=== PATIENT | male | born 1955 | race Caucasian/White ===

== ENCOUNTER 2020-12-26 10:46 | Outpatient (NON) | payer MEDICARE, SELFPAY ==
[2020-12-26 11:05] LABS: Add Urine Microscopic? YES; Appearance Urine Clear (Clear); Bilirubin Urine Negative (Negative); Blood Urine Negative (Negative); Color Urine Yellow (Yellow); Glucose Urine UA Negative (Negative); Ketones Urine Negative (Negative); Leukocyte Esterase Ur Negative LEU/UL (NEGATIVE); Nitrate Urine Negative (Negative); Protein Urine Negative (Negative); RBC Urine 0-2 /hpf (0-2); Specific Grav Ur 1.008 (1.001-1.035)
== END 2020-12-26 10:47 | disposition home or self-care (01) ==
PROVIDERS: PCP Physician Assistant; Visit Provider Physician Assistant
DX: R30.0 Dysuria (principal)
CPT/HCPCS: 81001; 87086

== ENCOUNTER 2021-01-01 13:03 | Outpatient (CLI) | payer MEDICARE, SELFPAY ==
[2021-01-01 13:42] LABS: Basophils Absolute Auto 0.1 K/mm3 (0.0-0.1); Basophils Percent Auto 1.3 % (0.2-1.2); Eosinophils Absolute Auto 0.3 K/mm3 (0-0.3); Eosinophils Percent Auto 3.5 % (0-4.4); Hematocrit 47.8 % (42.0-52.0); Hemoglobin 15.9 g/dL (14.0-18.0); Immature Granulocyte Absolute 0.02 K/mm3 (0.00-0.031); Immature Granulocyte Percent A 0.3 % (0-0.5); Lymphocytes Absolute Auto 1.51 K/mm3 (0.9-3.2); Lymphocytes Percent Auto 21.2 % (18.3-44.2); Mean Corpuscular HGB Conc 33.3 g/dl (32-36); Mean Corpuscular Hemoglobin 29.2 pg (26-34); Mean Corpuscular Volume 87.7 fl (80-100); Mean Platelet Volume 9.9 fl (7.4-10.4); Monocytes Absolute Auto 0.9 K/mm3 (0.1-0.6); Monocytes Percent Auto 12.1 % (2.6-8.5); Neutrophils Absolute Auto 4.4 K/mm3 (1.3-6.7); Neutrophils Percent Auto 61.6 % (45.5-73.1); Platelet Count Result 236 k/mm3 (150-375); Red Blood Count 5.45 M/mm3 (4.6-6.20); Red Cell Distribution Width 13.3 % (11.5-14.5); White Blood Count 7.1 K/mm3 (4.5-10.0)
[2021-01-01 13:43] LABS: Add Urine Microscopic? NO; Appearance Urine Clear (Clear); Bilirubin Urine Negative (Negative); Blood Urine Negative (Negative); Color Urine Yellow (Yellow); Glucose Urine UA Negative (Negative); Ketones Urine Negative (Negative); Leukocyte Esterase Ur Negative LEU/UL (NEGATIVE); Nitrate Urine Negative (Negative); Protein Urine Negative (Negative); Specific Grav Ur 1.009 (1.001-1.035); Urobilinogen Urine Negative mg/dL (<2.0)
[2021-01-01 13:56] LABS: Albumin Level 4.3 g/dL (3.5-5.1); Carbon Dioxide 24 mmol/L (22-30); Estimated Glomerular Filt Rate > 60
[2021-01-01 15:37] LABS: Alanine Aminotransferase 15 U/L (4-50); Alkaline Phosphatase 76 U/L (38-126); Anion Gap 8 mmol/L (8-16); Aspartate Amino Transferase 26 U/L (17-59); Bilirubin,Total 0.6 mg/dL (0.2-1.3); Blood Urea Nitrogen 11 mg/dL (9-20); Calcium 9.3 mg/dL (8.4-10.2); Chloride 110 mmol/L (98-107); Glucose 96 mg/dL (65-110); Potassium 3.9 mmol/L (3.4-5.0); Sodium 142 mmol/L (137-145)
== END 2021-01-01 13:04 | disposition home or self-care (01) ==
PROVIDERS: PCP Physician Assistant; Visit Provider Physician Assistant
DX: R30.0 Dysuria (principal); R82.2 Biliuria
CPT/HCPCS: 36415; 80053; 81003; 85025; 87086

== ENCOUNTER 2021-02-24 13:57 | Emergency (ER) | payer MEDICARE, SELFPAY ==
--- NOTE | ~2021-02-24 | XR_ITS ---
XR lumbar spine 2-3V DATE: 02/24/2021 14:32 INDICATION: Fall. Low back pain. TECHNIQUE: AP, lateral, coned lateral lumbosacral views COMPARISON: 08/01/2014 lumbar spine FINDINGS: There is osteopenia. There is mild levoscoliosis of the lumbar spine. Lumbar vertebrae are normally aligned. There is interval mild anterior wedge compression fracture def ormity of L3 since 08/01/2014. This is thought to most likely be chronic but acute fracture is not def initively excluded. No fracture of the lumbar spine is noted otherwise. There is degenerative spurring of the lower thoracic spine. There is moderately severe degenerative disc disease at L1 to moderate degenerative disc disease at L 4-5 and L5-S1. The sacroiliac joints are intact. There is a prominent of fecal material in the rectum and colon. IMPRESSION: Mild L3 compression fracture, not present in July 2014. This may be chronic, although acute fracture is not definitively excluded. Consider CT or MR correlation for more accurate dating. Osteopenia Degenerative disc disease, most pronounced at L1 to Mild levoscoliosis Reviewed, dictated and finalized at location [facility]. IMPRESSION: Mild L3 compression fracture, not present in July 2014. This ma y be chronic, although acute fracture is not definitively excluded. Consider CT or MR correlation for more accurate dating. Osteopenia Degenerative disc disease, most pronounced at L1 to Mild levoscoliosis
--- NOTE | ~2021-02-24 | CT_ITS ---
EXAMINATION: CT cervical spine wo con DATE: 02/24/2021 14:42 INDICATION: Fall. Neck pain. TECHNIQUE: Computed tomography (CT) of the cervical spine was performed without intravenous contrast. Automated exposure control and iterative reconstruction technique were employed. Exam dose: 326.62 mGy-cm total exam DLP. COMPARISON: None FINDINGS: C1 and C2 are normally aligned and the odontoid process is intact. There is fusion of the posterior elements at C2-3. There is degenerative change throughout the remain ing apophyseal joints. Uncovertebral joint spurring is noted, more prominent in the lower cervical re gion. There is moderate degenerative disc disease at C4-5 and to a greater extent C5-6 and C6-7. No fracture or dislocation or locked facet or prevertebral soft tissue swelling is detected.. IMPRESSION: No cervical spine fracture, dislocation or locked facet Cervical spondylosis Reviewed, dictated and finalized at [facility]. Reviewed, dictated and finalized at location [facility].
--- NOTE | ~2021-02-24 | CT_ITS ---
EXAMINATION: CT lumbar spine wo con DATE: 02/24/2021 15:54 INDICATION: L3 fracture of uncertain age. Fall. Back pain. TECHNIQUE: Computed tomography (CT) of the lumbar spine was performed without intravenous contrast. A utomated exposure control and iterative reconstruction technique were employed. Exam dose: 689.96 mG y-cm total exam DLP. COMPARISON: 02/24/2021 lumbar spine: None FINDINGS: There is mild anterior wedge compression fracture deformity of L3 which may be recent. No other fracture of the lumbar spine is detected. There is severe degenerative disc disease at T12-L1 and moderately prominent degenerative disc diseas e at L1-2. There is moderate degenerative disease at L4-5 and moderately severe degenerative disease at L5-S1. No spondylolysis or spondylolisthesis. Posterior bulging discs at L4-5 and L5-S1. The sacroiliac joints are intact. IMPRESSION: Mild L3 compression fracture deformity, possibly recent Multilevel degenerative disc disease Reviewed, dictated and finalized at [facility]. Reviewed, dictated and finalized at location [facility].
--- NOTE | ~2021-02-24 | CT_ITS ---
EXAMINATION: CT brain wo con DATE: 02/24/2021 14:42 INDICATION: Fall. Head injury. Neck pain. TECHNIQUE: Computed tomography (CT) of the head was performed without intravenous contrast. The mA wa s adjusted according to patient size. Iterative reconstruction technique was employed. Exam dose: 60 5.33 mGy-cm total exam DLP. COMPARISON: 08/26/2018 MRI brain/brainstem FINDINGS: No fracture or bone destruction of the cranial vault. There is a mucous retention cyst or p olyp in the posterior right maxillary sinus. There is partial opacification of left ethmoid air cells . The included paranasal sinuses and mastoid air cells are otherwise unremarkable. There is central and cortical cerebral atrophy. Bilateral carotid siphon internal carotid artery and vertebral basilar artery calcification is noted. There is nonspecific diminished attenuation of the cerebral white matter, likely due to chronic smal l vessel ischemic changes. No intracranial mass lesion or hemorrhage or cerebrovascular accident is detected. No midline shift o r mass effect effect. IMPRESSION: Cerebral atherosclerosis and chronic small vessel ischemic changes of cerebral white mat ter No acute intracranial finding Reviewed, dictated and finalized at [facility]. Reviewed, dictated and finalized at location [facility]. IMPRESSION: Cerebral atherosclerosis and chronic small vessel ischemic changes of cerebral white matter No acute intracranial finding
[2021-02-24 14:05] VITALS: BP 148/90; PULSE 92; RESP 18; TEMP 36.4; O2SAT 99
--- NOTE | 2021-02-24 14:25 | ED.FALL ---
HPI - Fall General Chief Complaint: Fall Stated Complaint: FALL/LOW BACK PAIN Time Seen by Provider: 02/24/21 14:03 Source: patient, family, RN notes reviewed and old records reviewed Mode of arrival: EMS Limitations: dementia History of Present Illness HPI Narrative: This is a 66 year old male with history of chronic low back pain and Alzheimer's Dementia who presents for evaluation of fall. His states patient fell out of bed onto his bottom. She states patient did not have loss of consciousness. Patient complained to her that he had low back pain and headache but he denies having any pain currently. She reports patient fell 2 weeks ago when he tripped over carpet. She reports he is at his baseline mental status. She is not concerned with any thing. She just wants to make sure nothing is broken. Related Data Home Medications Medication Instructions Recorded Confirmed cetirizine 10 mg capsule 10 mg PO DAILY 08/10/19 01/10/21 famotidine 10 mg tablet 10 mg PO DAILY 08/10/19 01/10/21 latanoprost (PF) 0.005 % eye drops 1 drop EACH EYE DAILY 08/10/19 01/10/21 timolol 0.25 % eye drops 1 drop EACH EYE Q12H 08/10/19 01/10/21 Allergies Allergy/AdvReac Type Severity Reaction Status Date / Time No Known Allergies Allergy Verified 01/08/21 13:56 Review of Systems Review of Systems: All systems reviewed & are unremarkable except as noted in HPI and below PMFSH Past Medical History Medical History (Updated 02/24/21 @ 16:47 by Cinthia Hogue MD) Alzheimer's dementia BPH (benign prostatic hyperplasia) Bulging lumbar disc Family History Family History Mother Patient's mother is in good health Father Patient's father is in good health Sibling Patient's sister is in good health Patient's brother is in good health Other Family history of pancreatic cancer Social History Social History Smoking packs per day: 1 Smoking cigarettes per day: 20.0 Years smoked: 5 Smoking pack-years: 5.00 Smoking status: Former smoker Second hand tobacco smoke exposure: No Smoking end date: 06/09/89 Alcohol intake: never Substance use: never Exam Const: General: no acute distress and alert Other: oriented to person HENMT: Head: normocephalic and atraumatic Mouth: Yes Normal oral and palatal mucosa present, Yes lip normal, Yes oropharynx normal and Yes moist mucous membranes Eyes: Pupils: Equal, round and reactive pupils present EOM: EOMs intact bilaterally Chest: Chest palpation & inspection: normal inspection of the chest and no tenderness Resp: Effort & Inspection: normal respiratory effort and no retractions Auscultation: clear to auscultation bilaterally Cardio: Rate: regular rate Rhythm: regular rhythm Heart sounds: no murmurs GI: GI Palp: Yes Soft to palpation, No Tenderness to palpation present (GI) and No Guarding due to palpation present (GI) Auscultation: normal bowel sounds Skin: General skin exam: normal color Neuro: General: moves all extremities and CN's II-XI intact bilaterally Psych: Mental Status: mental status grossly normal Affect: normal affect Course Reevaluation(s) Reevaluation #1: I reviewed CT showing compression fracture L1 with patient and . She denies any other concerns. Date: 02/24/21 Time: 16:45 Vital Signs Vital signs: Vital Signs Temperature 97.5 F L 02/24/21 14:05 Pulse Rate 92 02/24/21 14:05 Respiratory Rate 18 02/24/21 14:05 Blood Pressure 148/90 H 02/24/21 14:05 Pulse Oximetry 99 02/24/21 14:05 Temperature 98.2 F 02/24/21 17:47 Pulse Rate 94 02/24/21 17:47 Respiratory Rate 18 02/24/21 17:47 Blood Pressure 153/93 H 02/24/21 17:47 Pulse Oximetry 99 02/24/21 17:47 MDM - Fall Imaging Data Radiologist's impression: ITS Impressions Head CT 02/24/21 15:01 IMPRESSION: Cerebral athe
[2021-02-24 16:17] VITALS: BP 130/79; PULSE 88; RESP 18; TEMP 36.6; O2SAT 100
[2021-02-24 17:47] VITALS: BP 153/93; PULSE 94; RESP 18; TEMP 36.8; O2SAT 99
== END 2021-02-24 17:47 | disposition home or self-care (01) ==
PROVIDERS: Emergency Provider General Practice; PCP Physician Assistant
DX: S09.90XA Unspecified injury of head, initial encounter (principal); S32.010A Wedge compression fracture of first lumbar vertebra, initial encounter for closed fracture; G30.9 Alzheimer's disease, unspecified; F02.80 Dementia in other diseases classified elsewhere, unspecified severity, without behavioral disturbance, psychotic disturbance, mood disturbance, and anxiety; N40.0 Benign prostatic hyperplasia without lower urinary tract symptoms; M51.26 Other intervertebral disc displacement, lumbar region; M51.27 Other intervertebral disc displacement, lumbosacral region; Z87.891 Personal history of nicotine dependence; M51.35 Other intervertebral disc degeneration, thoracolumbar region; M51.36 Other intervertebral disc degeneration, lumbar region; M51.37 Other intervertebral disc degeneration, lumbosacral region; M47.812 Spondylosis without myelopathy or radiculopathy, cervical region; M85.88 Other specified disorders of bone density and structure, other site; I67.2 Cerebral atherosclerosis; W06.XXXA Fall from bed, initial encounter
CPT/HCPCS: 70450; 72100; 72125; 72131; 99284

== ENCOUNTER 2021-08-03 00:06 | Emergency (ER) | payer MEDICARE, SELFPAY ==
[2021-08-03 00:11] VITALS: BP 137/74; PULSE 82; RESP 12; TEMP 36.5; O2SAT 100
[2021-08-03 00:35] LABS: Basophils Absolute Auto 0.1 K/mm3 (0.0-0.1); Basophils Percent Auto 0.6 % (0.2-1.2); Eosinophils Absolute Auto 0.2 K/mm3 (0-0.3); Eosinophils Percent Auto 1.9 % (0-4.4); Hemoglobin 11.1 g/dL (14.0-18.0); Immature Granulocyte Absolute 0.08 K/mm3 (0.00-0.031); Immature Granulocyte Percent A 0.7 % (0-0.5); Lymphocytes Absolute Auto 2.09 K/mm3 (0.9-3.2); Lymphocytes Percent Auto 19.4 % (18.3-44.2); Mean Corpuscular HGB Conc 33.6 g/dl (32-36); Mean Corpuscular Hemoglobin 28.8 pg (26-34); Mean Corpuscular Volume 85.7 fl (80-100); Mean Platelet Volume 9.3 fl (7.4-10.4); Monocytes Absolute Auto 1.4 K/mm3 (0.1-0.6); Monocytes Percent Auto 12.7 % (2.6-8.5); Neutrophils Percent Auto 64.7 % (45.5-73.1); Platelet Count Result 515 k/mm3 (150-375); Red Blood Count 3.85 M/mm3 (4.6-6.20); Red Cell Distribution Width 13.1 % (11.5-14.5); White Blood Count 10.8 K/mm3 (4.5-10.0)
[2021-08-03 00:52] LABS: Add Urine Microscopic? YES; Appearance Urine Clear (Clear); Bacteria Urine Trace /hpf; Bilirubin Urine Negative (Negative); Blood Urine Negative (Negative); Color Urine Yellow (Yellow); Glucose Urine UA Negative (Negative); Ketones Urine Negative (Negative); Leukocyte Esterase Ur Negative LEU/UL (Negative); Mucus Urine Rare /lpf; Nitrate Urine Negative (Negative); Protein Urine 1+ mg/dL (Negative); RBC Urine 0-2 /hpf (0-2); Specific Grav Ur 1.021 (1.001-1.035); WBC Urine 0-3 /hpf
[2021-08-03 01:11] LABS: Alanine Aminotransferase 25 U/L (4-50); Albumin Level 3.3 g/dL (3.5-5.1); Alkaline Phosphatase 91 U/L (38-126); Anion Gap 10 mmol/L (8-16); Aspartate Amino Transferase 35 U/L (17-59); Bilirubin,Total 0.5 mg/dL (0.2-1.3); Blood Urea Nitrogen 17 mg/dL (9-20); Calcium 8.8 mg/dL (8.4-10.2); Carbon Dioxide 28 mmol/L (22-30); Chloride 102 mmol/L (98-107); Estimated CRCL calculation 75 ml/min; Estimated Glomerular Filt Rate > 60; Glucose 100 mg/dL (65-110); Potassium 3.4 mmol/L (3.4-5.0); Sodium 140 mmol/L (137-145)
--- NOTE | 2021-08-03 01:31 | ED.MALEGU ---
HPI - Male Genitourinary General Chief complaint: Urogenital-Male Stated complaint: urinary retention Time Seen by Provider: 08/03/21 00:08 Source: EMS and other ([facility]) Mode of arrival: EMS Limitations: dementia History of Present Illness HPI Narrative: Pt is a 66 y/o male, PMHx of dementia and BPH, presents to ED via EMS from local group home facility with urinary retention, with normal UO throughout the day today until this afternoon. He has no fevers, flank pain or vomiting. No other symptoms reported. No new medications reported. Related Data Home Medications Medication Instructions Recorded Confirmed cetirizine 10 mg capsule 10 mg PO DAILY 08/10/19 01/10/21 famotidine 10 mg tablet 10 mg PO DAILY 08/10/19 01/10/21 latanoprost (PF) 0.005 % eye drops 1 drop EACH EYE DAILY 08/10/19 01/10/21 timolol 0.25 % eye drops 1 drop EACH EYE Q12H 08/10/19 01/10/21 Allergies Allergy/AdvReac Type Severity Reaction Status Date / Time No Known Allergies Allergy Verified 01/08/21 13:56 Review of Systems Review of Systems: refer to HPI Genitourinary: Genitourinary: Reports as per HPI [facility] Past Medical History Medical History (Updated 08/03/21 @ 01:50 by MIRIAM Bartholomew) Alzheimer's dementia BPH (benign prostatic hyperplasia) Bulging lumbar disc Family History Family History Mother Patient's mother is in good health Father Patient's father is in good health Sibling Patient's sister is in good health Patient's brother is in good health Other Family history of pancreatic cancer Social History Social History Smoking packs per day: 1 Smoking cigarettes per day: 20.0 Years smoked: 5 Smoking pack-years: 5.00 Smoking status: Former smoker Second hand tobacco smoke exposure: No Smoking end date: 06/09/89 Alcohol intake: never Substance use: never Exam Const: General: cooperative, alert and other (appears older than stated age, conversant when spoken to, poor historian) Nutritional Appearance: average body habitus Orientation/consciousness: oriented to person, oriented to place and confusion Other: dementia HENMT: Head: normal to inspection Ears: hearing grossly normal bilaterally General nose exam: Normal external nose present Face and sinus: normal facial exam Mouth: Yes Normal oral and palatal mucosa present Eyes: General: appearance normal, both eyes and all related structures Visual Jett: normal visual jett by confrontation Conjunctivae: conjunctivae normal Sclera: sclerae normal EOM: EOMs intact bilaterally Neck: Neck: normal visual inspection, full ROM, no lymphadenopathy and no meningeal signs Chest: Chest palpation & inspection: normal inspection of the chest Resp: Effort & Inspection: normal respiratory effort and able to speak in complete sentences Auscultation: clear to auscultation bilaterally Cardio: Jugular venous distension: no JVD Palpation: normal PMI Rate: regular rate Rhythm: regular rhythm Heart sounds: S1 normal heart sound present, S2 normal heart sound present and Murmur heart sound present systolic II/ and at the left sternal border Peripheral pulses: Peripheral pulses 2+ throughout GI: Inspection: normal to inspection GI Palp: Yes Soft to palpation Percussion: Yes normal to percussion Auscultation: normal bowel sounds Rectal Exam: deferred : General: Yes no CVA tenderness Male General Exam: Yes normal external exam Penis: Yes normal penis Urinary Catheter: Urinary Catheter: patent and draining and urine dark Back/Spine/Pelvis: Back: no CVA tenderness Skin: General skin exam: normal color Rashes: no rashes Course Course Emergency Course: labs at baseline for patient, bladder scan confirmed urinary retention. Pt's notes patient had a similar incident two weeks ago following hip replacement surge
[2021-08-03 02:02] VITALS: BP 148/69; PULSE 83; RESP 18; TEMP 36.6; O2SAT 98
== END 2021-08-03 04:02 ==
PROVIDERS: Emergency Provider Nurse Practitioner Family; PCP Family Medicine
DX: N40.1 Benign prostatic hyperplasia with lower urinary tract symptoms (principal); R33.8 Other retention of urine; G30.9 Alzheimer's disease, unspecified; F02.80 Dementia in other diseases classified elsewhere, unspecified severity, without behavioral disturbance, psychotic disturbance, mood disturbance, and anxiety; Z87.891 Personal history of nicotine dependence
CPT/HCPCS: 36415; 51702; 80053; 81001; 85025; 99283

== ENCOUNTER 2021-08-14 17:20 | Emergency (ER) | payer MEDICARE, SELFPAY ==
[2021-08-14 17:25] VITALS: BP 119/79; PULSE 98; RESP 16; TEMP 36.9; O2SAT 96
--- NOTE | 2021-08-14 17:37 | ED.MALEGU ---
HPI - Male Genitourinary General Chief complaint: Urogenital-Male Stated complaint: nascimento placed Time Seen by Provider: 08/14/21 17:31 Source: patient Mode of arrival: ambulatory Limitations: no limitations History of Present Illness HPI Narrative: 66-year-old male with history of Alzheimer's presents from the skilled nursing today with concerns of inability to urinate. Patient was seen by urology on the and Nascimento catheter was inserted. Patient's Nascimento catheter was removed last night. Per sitting at the bedside patient has been unable to urinate. Patient's states he is eating and drinking normally. His mentation is at his baseline. No other concerns today other than urinary issue. Patient's stated that they did start him on Bactrim today due to a UTI. Related Data Home Medications Medication Instructions Recorded Confirmed cetirizine 10 mg capsule 10 mg PO DAILY 08/10/19 01/10/21 famotidine 10 mg tablet 10 mg PO DAILY 08/10/19 01/10/21 latanoprost (PF) 0.005 % eye drops 1 drop EACH EYE DAILY 08/10/19 01/10/21 timolol 0.25 % eye drops 1 drop EACH EYE Q12H 08/10/19 01/10/21 Allergies Allergy/AdvReac Type Severity Reaction Status Date / Time No Known Allergies Allergy Verified 01/08/21 13:56 Review of Systems Review of Systems: CONSTITUTIONAL: Denies fever, chills, or sweats. CARDIOVASCULAR: Denies chest pain, palpitations, or edema. RESPIRATORY: Denies cough or dyspnea. GASTROINTESTINAL: Denies abdominal pain, nausea, vomiting, or diarrhea. GENITOURINARY: Difficulty urinating. Pelvic pain. NEUROLOGIC: Denies headache, numbness, dizziness, or weakness. PSYCHIATRIC: Denies anxiety or depression. [facility] Past Medical History Medical History Alzheimer's dementia BPH (benign prostatic hyperplasia) Bulging lumbar disc Family History Family History Mother Patient's mother is in good health Father Patient's father is in good health Sibling Patient's sister is in good health Patient's brother is in good health Other Family history of pancreatic cancer Social History Social History Smoking packs per day: 1 Smoking cigarettes per day: 20.0 Years smoked: 5 Smoking pack-years: 5.00 Smoking status: Former smoker Second hand tobacco smoke exposure: No Smoking end date: 06/09/89 Alcohol intake: never Substance use: never Exam Narrative: GENERAL: Alert, awake, no acute distress. HEAD: Normocephalic, atraumatic. EYES: PERRLA and EOMI. ENT: Nares clear, no rhinorrhea or epistaxis. Mucous membranes moist. Oropharynx without tonsillar hypertrophy exudate or other lesions. Bilateral TMs pearly tamayo nonbulging NECK: Supple. No adenopathy or masses. No carotid bruits or JVD CHEST: Clear to auscultation. No respiratory distress. No wheezes rales or rhonchi HEART: Regular rate and rhythm. No murmur heard. Normal peripheral pulses. ABDOMEN: Tenderness to pelvic region. Soft, nondistended, normal active bowel sounds. EXTREMITIES: Normal range of motion. No edema. SKIN: Warm, dry, no rash. NEURO: Patient at baseline. No focal deficits. PSYCH: Normal mood and affect. Course Reevaluation(s) Reevaluation #1: Patient with over 200 ml out of urine. at bedside. No other concerns at this time. Patient to be discharged back to [facility]. Date: 08/14/21 Time: 18:30 Vital Signs Vital signs: Vital Signs Temperature 36.9 C 08/14/21 17:25 Pulse Rate 98 08/14/21 17:25 Respiratory Rate 16 08/14/21 17:25 Blood Pressure 119/79 08/14/21 17:25 Pulse Oximetry 96 08/14/21 17:25 Temperature 36.9 C 08/14/21 17:25 Pulse Rate 92 08/14/21 20:09 Respiratory Rate 16 08/14/21 20:09 Blood Pressure 115/80 08/14/21 20:09 Pulse Oximetry 98 08/14/21 20:09 MDM - Male Genitourinary Differential Diagn
[2021-08-14 18:08] LABS: Add Urine Microscopic? YES; Appearance Urine Cloudy (Clear); Bacteria Urine Trace /hpf; Bilirubin Urine Negative (Negative); Blood Urine 1+ (Negative); Color Urine Yellow (Yellow); Glucose Urine UA Negative (Negative); Ketones Urine Negative (Negative); Leukocyte Esterase Ur 1+ LEU/UL (Negative); Nitrate Urine Negative (Negative); Protein Urine 2+ mg/dL (Negative); Specific Grav Ur 1.017 (1.001-1.035); WBC Urine >75 /hpf
--- NOTE | 2021-08-14 20:08 | PC.NURSE ---
Attempted to call report to [facility] at 1999, no answer. Voice mail left. Spoke to patient's , Iman, and notified her that he was on his way back to [facility].
[2021-08-14 20:09] VITALS: BP 115/80; PULSE 92; RESP 16; O2SAT 98
--- NOTE | 2021-08-14 20:09 | PC.NURSE ---
ramirez has arrived
== END 2021-08-14 20:11 ==
PROVIDERS: Emergency Provider Nurse Practitioner Family; PCP Family Medicine
DX: N40.1 Benign prostatic hyperplasia with lower urinary tract symptoms (principal); R33.8 Other retention of urine; G30.9 Alzheimer's disease, unspecified; F02.80 Dementia in other diseases classified elsewhere, unspecified severity, without behavioral disturbance, psychotic disturbance, mood disturbance, and anxiety; Z87.891 Personal history of nicotine dependence
CPT/HCPCS: 51702; 81001; 87086; 99283

== ENCOUNTER 2022-01-14 01:47 | Emergency (ER) | payer MEDICARE, SELFPAY ==
[2022-01-14 01:48] VITALS: BP 142/69; PULSE 59; RESP 18; TEMP 36.2; O2SAT 100
--- NOTE | 2022-01-14 02:00 | ED.GENADULT ---
HPI - General Adult General Chief complaint: Urogenital-Male Stated complaint: cant replace nascimento Time Seen by Provider: 01/14/22 01:52 History of Present Illness HPI narrative: 66-year-old male presenting to the emergency department for evaluation from a local senior living due to difficulty in replacing his Nascimento catheter. Patient has had an indwelling Nascimento catheter for an unknown duration. Patient is unsure how long he has had the Nascimento catheter. [facility] attempted to replace a Nascimento catheter per the monthly schedule and they were unable to repassed the catheter. Patient was transferred to the emergency department by ambulance. Related Data Home Medications Medication Instructions Recorded Confirmed cetirizine 10 mg capsule 10 mg PO DAILY 08/10/19 01/10/21 famotidine 10 mg tablet (Pepcid AC) 10 mg PO DAILY 08/10/19 01/10/21 latanoprost (PF) 0.005 % eye drops 1 drop ophthalmic (eye) DAILY 08/10/19 01/10/21 timolol 0.25 % eye drops (Betimol) 1 drop ophthalmic (eye) Q12H 08/10/19 01/10/21 Allergies Allergy/AdvReac Type Severity Reaction Status Date / Time No Known Allergies Allergy Verified 01/14/22 01:53 Review of Systems Review of Systems: ROS unobtainable: Yes unobtainable due to medical condition PMFSH Past Medical History Medical History Alzheimer's dementia BPH (benign prostatic hyperplasia) Bulging lumbar disc Family History Family History Mother Patient's mother is in good health Father Patient's father is in good health Sibling Patient's sister is in good health Patient's brother is in good health Other Family history of pancreatic cancer Social History Social History Smoking packs per day: 1 Smoking cigarettes per day: 20.0 Years smoked: 5 Smoking pack-years: 5.00 Smoking status: Former smoker Second hand tobacco smoke exposure: No Smoking end date: 06/09/89 Alcohol intake: never Substance use: never Exam Narrative: APPEARANCE: Well appearing, no pain, no distress, well-nourished. HEAD: normocephalic, atraumatic. EYES: PERRLA/EOMI, conjunctivae clear. NOSE: Normal no drainage NECK: Supple. No adenopathy, no masses. RESPIRATORY: Airway patent, respirations nonlabored. Clear to auscultation bilaterally, no rales, rhonchi, wheezing. CARDIOVASCULAR: Regular rate and rhythm without murmurs rubs or gallops. ABDOMINAL: Soft, nontender, nondistended, normal bowel sounds MUSCULOSKELETAL: Moves all extremities. Strength/ROM intact, No edema, No calf tenderness. NEURO: Alert. Cranial nerves II through XII intact. Grossly intact SKIN: Warm, dry. Normal Color PSYCHIATRIC: Normal affect/mood. Course Course Emergency Course: Nursing staff was able to place a coud? Nascimento without issue. Patient is passing urine. Patient denies any complaints. Vital Signs Vital signs: Vital Signs Temperature 97.1 F L 01/14/22 01:48 Pulse Rate 59 L 01/14/22 01:48 Respiratory Rate 18 01/14/22 01:48 Blood Pressure 142/69 H 01/14/22 01:48 Pulse Oximetry 100 01/14/22 01:48 Oxygen Delivery Room Air 01/14/22 01:48 Temperature 97.1 F L 01/14/22 01:48 Pulse Rate 92 01/14/22 03:42 Respiratory Rate 18 01/14/22 03:42 Blood Pressure 139/73 01/14/22 03:42 Pulse Oximetry 95 01/14/22 03:42 Oxygen Delivery Room Air 01/14/22 01:48 Medical Decision Making Vital Signs Vital Signs: Vital Signs Temperature 97.1 F L 01/14/22 01:48 Pulse Rate 59 L 01/14/22 01:48 Respiratory Rate 18 01/14/22 01:48 Blood Pressure 142/69 H 01/14/22 01:48 Pulse Oximetry 100 01/14/22 01:48 Oxygen Delivery Room Air 01/14/22 01:48 Temperature 97.1 F L 01/14/22 01:48 Pulse Rate 92 01/14/22 03:42 Respiratory Rate 18 01/14/22 03:42 Blood Pressure 139/73 01/14/22 03:42 Pulse Oximetry 95
--- NOTE | 2022-01-14 02:15 | PC.NURSE ---
14F coude catheter inserted easily without resistance. Pt tolerated well.
--- NOTE | 2022-01-14 02:33 | PC.NURSE ---
Report to T[facility] at [place]. [facility] notified of need to transport. ETA [id number].
[2022-01-14 03:42] VITALS: BP 139/73; PULSE 92; RESP 18; O2SAT 95
== END 2022-01-14 03:46 ==
PROVIDERS: Emergency Provider Emergency Medicine; PCP Physician Assistant
DX: Z46.6 Encounter for fitting and adjustment of urinary device (principal); G30.9 Alzheimer's disease, unspecified; F02.80 Dementia in other diseases classified elsewhere, unspecified severity, without behavioral disturbance, psychotic disturbance, mood disturbance, and anxiety; N40.0 Benign prostatic hyperplasia without lower urinary tract symptoms; Z87.891 Personal history of nicotine dependence
CPT/HCPCS: 51702; 99283

== ENCOUNTER 2022-08-26 16:55 | Inpatient (IN) | payer MEDICARE, SELFPAY ==
[2022-08-26] VITALS (34 sets, daily range): BP systolic 83–146; BP diastolic 53–101; PULSE 110–134; RESP 14–27; TEMP 37.9–39.9; O2SAT 96–100
--- NOTE | ~2022-08-26 | CT_ITS ---
EXAMINATION: CT abdomen pelvis wo/w con DATE: 08/27/2022 14:11 INDICATION: Gross hematuria TECHNIQUE: Computed tomography (CT) of the abdomen and pelvis was performed without intravenous contr ast. CT of the abdomen and pelvis was then performed with a total of 130 mL Omnipaque 350 intravenous contrast using a double-bolus technique for simultaneous opacification of the renal parenchyma and r enal collecting system. The dose-length product (DLP) was 1180.86 mGy-cm. Automated exposure control and iterative reconstruction technique were employed. COMPARISON: 02/24/2021 FINDINGS: Minimal dependent atelectasis is present in the lung bases. The heart size is normal. There is a 2.1 cm cyst of the left hepatic lobe. The spleen, pancreas, gallbladder, and adrenal glands are normal. There is mild bilateral proximal hydroureter of unclear etiology. The bladder is decompresse d by Winters catheter. There are stones in the urinary bladder. A large volume of colonic stool is pres ent. There is fecal impaction and distention of the rectum. There appears to be mild wall thickening of the rectum with adjacent perirectal fat stranding. There is no free intraperitoneal gas. No pathol ogically enlarged abdominal or pelvic lymph nodes are identified. There is calcified atherosclerosis of the aorta and many of the other arteries. The appendix is normal. There are changes of right hip a rthroplasty. There is a chronic L3 compression fracture with interval worsening. IMPRESSION: 1. Multiple stones in the urinary bladder. 2. Mild bilateral proximal hydroureter. 3. Fecal impaction and distention of the rectum with possible stercoral colitis. Reviewed, dictated and finalized at location L. IMPRESSION: 1. Multiple stones in the urinary bladder. 2. Mild bilateral proximal hydroureter. 3. Fecal impaction and distention of the rectum with possible stercoral colitis .
--- NOTE | ~2022-08-26 | US_ITS ---
Renal-Bladder ultrasound Clinical History: Hydronephrosis Technique: Real-time sonographic imaging of the kidneys and urinary bladder was performed. Findings: The right kidney measures 11.5 cm in length and the left kidney measures 11.3 cm. There is no hydronephrosis or renal calculus identified. Renal cortical echogenicity is within normal limits. No renal mass lesion is identified. The urinary bladder is collapsed around a Winters catheter. Impression: Unremarkable ultrasound of the kidneys. Collapsed urinary bladder limits evaluation. Reviewed, dictated and finalized at location M. Impression: Unremarkable ultrasound of the kidneys. Collapsed urinary bladder limits evaluation.
--- NOTE | ~2022-08-26 | XR_ITS ---
EXAM: XR abdomen/kub 1V DATE: 08/27/2022 17:40 HISTORY: gross hematuria . COMPARISON: CT abdomen pelvis 08/27/2022. FINDINGS: Clear lung bases. Large volume of colonic stool. No organomegaly. Contrast fills the bilat eral collecting systems and urinary bladder. Known bladder calcifications are obscured by contrast. F oley catheter, in good position. Bilateral moderate hydronephrosis. Partially visualized right hip ar throplasty. IMPRESSION: Moderate bilateral hydronephrosis. Reviewed, dictated and finalized at location K.
[2022-08-26] MEDS: ACETAMINOPHEN 650 MG SUPPOSITORY RECTAL (18:18)
[2022-08-26] MEDS: SODIUM CHLORIDE 0.9% IV 1,000 ML 999 ML IV CONT ×2 (18:19→20:47)
[2022-08-26 18:53] LABS: Appearance Urine Turbid (Clear); Bilirubin Urine 1+ (Negative); Blood Urine 3+ (Negative); Color Urine Red (Yellow); Glucose Urine UA Negative (Negative); Ketones Urine Trace mg/dL (Negative); Leukocyte Esterase Ur 1+ LEU/UL (Negative); Nitrate Urine Positive (Negative); Protein Urine 3+ mg/dL (Negative); Specific Grav Ur 1.015 (1.001-1.035); pH Urine >=9.0 (5.0-9.0)
[2022-08-26 18:57] LABS: Add Urine Microscopic? YES; RBC Urine >100 /hpf (0-2)
[2022-08-26 18:59] LABS: Squamous Epithelial Cell Urine None seen /hpf (Few)
[2022-08-26 19:00] LABS: Bacteria Urine 4+ /hpf
[2022-08-26 19:03] LABS: Hematocrit 45.2 % (42.0-52.0); Hemoglobin 14.5 g/dL (14.0-18.0); Mean Corpuscular HGB Conc 32.1 g/dl (32-36); Mean Corpuscular Hemoglobin 29.1 pg (26-34); Mean Corpuscular Volume 90.8 fl (80-100); Mean Platelet Volume 11.4 fl (7.4-10.4); Platelet Count Result 237 k/mm3 (150-375); Red Blood Count 4.98 M/mm3 (4.6-6.20); Red Cell Distribution Width 14.1 % (11.5-14.5); White Blood Count 15.7 K/mm3 (4.5-10.0)
[2022-08-26 19:13] LABS: Alanine Aminotransferase 21 U/L (6-50); Albumin Level 4.3 g/dL (3.5-5.1); Alkaline Phosphatase 105 U/L (38-126); Anion Gap 8 mmol/L (8-16); Aspartate Amino Transferase 31 U/L (17-59); Bilirubin,Total 0.7 mg/dL (0.2-1.3); Blood Urea Nitrogen 30 mg/dL (9-20); Calcium 9.3 mg/dL (8.4-10.2); Carbon Dioxide 28 mmol/L (22-30); Chloride 107 mmol/L (98-107); Estimated Glomerular Filt Rate 47; Glucose 91 mg/dL (65-110); Lactic Acid Reflex 2.6 mmol/L (0.7-2.0); Potassium 3.6 mmol/L (3.4-5.0); Sodium 143 mmol/L (137-145)
[2022-08-26] MEDS: SODIUM CHLORIDE 0.9% IV 1,000 ML 999 ML (19:26)
--- NOTE | 2022-08-26 19:26 | PC.NURSE ---
Per EMILIE Palma, give 1000mL NS bolus
--- NOTE | 2022-08-26 19:47 | ED.GENADULT ---
HPI - General Adult General Chief complaint: Urogenital-Male Stated complaint: Unspecified Time Seen by Provider: 08/26/22 17:08 History of Present Illness HPI narrative: Patient is a 67-year-old male who presents ER with hematuria. detention noticed blood in the catheter today. Patient unable to communicate needs due to dementia related to Parkinson's. Patient does have distended bladder on exam. Patient is not on any blood thinners. He does have chronic indwelling Winters catheter due to urinary retention. Related Data Home Medications Medication Instructions Recorded Confirmed cetirizine 10 mg capsule 10 mg PO DAILY 08/10/19 01/10/21 famotidine 10 mg tablet (Pepcid AC) 10 mg PO DAILY 08/10/19 01/10/21 latanoprost (PF) 0.005 % eye drops 1 drop ophthalmic (eye) DAILY 08/10/19 01/10/21 timolol 0.25 % eye drops (Betimol) 1 drop ophthalmic (eye) Q12H 08/10/19 01/10/21 Allergies Allergy/AdvReac Type Severity Reaction Status Date / Time No Known Allergies Allergy Verified 01/14/22 01:53 Review of Systems Review of Systems: ROS unobtainable: Yes unobtainable due to mental status PMFSH Past Medical History Medical History Alzheimer's dementia BPH (benign prostatic hyperplasia) Bulging lumbar disc Family History Family History Mother Patient's mother is in good health Father Patient's father is in good health Sibling Patient's sister is in good health Patient's brother is in good health Other Family history of pancreatic cancer Social History Social History Smoking packs per day: 1 Smoking cigarettes per day: 20.0 Years smoked: 5 Smoking pack-years: 5.00 Smoking status: Former smoker Second hand tobacco smoke exposure: No Smoking end date: 06/09/89 Alcohol intake: never Substance use: never Exam Narrative: GENERAL: Chronically ill-appearing, well-nourished, and in no acute distress. HEAD: Normocephalic, atraumatic. ENT: Dry mucous membranes. CHEST: Clear to auscultation. No respiratory distress. HEART: Tachycardic and regular. Normal peripheral pulses. ABDOMEN: Soft, bladder palpated at the umbilicus which elicits pain, normal active bowel sounds. : Acquired hypospadias from erosion of Winters catheter through penis. Blood clot surrounding this. Winters catheter filled with blood. EXTREMITIES: Normal range of motion. No edema. SKIN: Warm, dry, no rash. NEURO: Awake and alert but not oriented. Course Course Emergency Course: Winters catheter is essentially clear after placement of three-way catheter and CBI. Patient has received rectal Tylenol for his fever. He will receive ceftriaxone to treat urinary infection. Urology has been consulted. I discussed the severity of the illness with patient's . He is a DNR. We discussed potential central line placement and she is apprehensive as she thinks she will likely pull it out. Comfort focused measures at this time while trying to fluid resuscitate and treat infection. Vital Signs Vital signs: Vital Signs Temperature 100.2 F H 08/26/22 16:55 Pulse Rate 124 H 08/26/22 16:55 Respiratory Rate 20 08/26/22 16:55 Blood Pressure 146/83 H 08/26/22 16:55 Pulse Oximetry 100 08/26/22 16:55 Temperature 102.9 F H 08/26/22 20:03 Pulse Rate 117 H 08/26/22 21:12 Respiratory Rate 16 08/26/22 21:12 Blood Pressure 98/59 L 08/26/22 21:12 Pulse Oximetry 100 08/26/22 21:12 Medical Decision Making Vital Signs Vital Signs: Vital Signs Temperature 100.2 F H 08/26/22 16:55 Pulse Rate 124 H 08/26/22 16:55 Respiratory Rate 20 08/26/22 16:55 Blood Pressure 146/83 H 08/26/22 16:55 Pulse Oximetry 100 08/26/22 16:55 Temperature 102.9 F H 08/26/22 20:03 Pulse Rate 117 H 08/26/22 21:12 Respiratory Rate 16 08/26/22 21:12 Bl
[2022-08-26 20:04] LABS: Band Neutrophils Percent 11 % (0-6); Lymphocytes Absolute Manual 0.94 K/mm3 (1.1-4.5); Neutrophils Absolute Manual 14.75 K/mm3 (1.3-6.7); Neutrophils Percent Manual 83 % (46-73); Total Cells Counted 100
[2022-08-26 20:05] LABS: Platelet Estimate Adequate (Adequate); Schistocytes None Seen (NORMAL)
[2022-08-26 20:28] LABS: Influenza A QL RT-PCR Negative (Negative); Influenza B QL RT-PCR Negative (Negative); SARS-CoV-2 RNA PCR Negative
--- NOTE | 2022-08-26 20:37 | ECG_ITS ---
Measurements Intervals [place] Rate: 123 P: 69 [place]: 155 QRS: 100 QRSD: 149 T: 41 QT: 363 QTc: 520 Interpretive Statements SINUS TACHYCARDIA RIGHT BUNDLE BRANCH BLOCK BASELINE ARTIFACT- I, II, III, AVR, AVL, AVF, V1-V2 ABNORMAL ECG NO PREVIOUS ECG AVAILABLE FOR COMPARISON Electronically Signed On 08-27-2022 6:45:34 CDT by Vignesh Ruby D.O.
[2022-08-26] MEDS: LACTATED RINGERS 1,000 ML 125 ML IV CONT (21:28)
[2022-08-26 22:00] LABS: Reflex Lactic Acid Yes or No Add Lactic
[2022-08-26 22:43] LABS: Lactic Acid 2.1 mmol/L (0.7-2.0)
--- NOTE | 2022-08-26 22:50 | PM.IMHP ---
H&P: HPI History of Present Illness Date/Time: 08/26/22 22:50 Chief Complaint: Blood in Winters catheter Narrative: 67-year-old male with past medical history of dementia, chronic urinary retention with chronic indwelling Winters catheter, glaucoma and GERD who presented to the ER via EMS from [facility] due to hematuria noted in Winters catheter on arrival to the ER the patient was febrile with a T-max of 103.8?. The ER physician let me know that the patient's bladder was noted bleed distended on exam and his Winters catheter was not draining. His catheter was exchanged in the the ER and a 3 way catheter was placed for bladder irrigation. Urology was consulted. The patient was placed on antibiotic therapy with Rocephin. A review of our records indicate that the patient does not have a history of drug-resistant UTIs in the past. The patient was noted to be tachycardic. He also developed some borderline hypotension after exchange of the Winters catheter. He had lactic acidosis with a lactic acid 2.6 with repeat of 2.1 after receiving 1 L normal saline bolus. The patient was given a 2 L of normal saline. The patient's case was discussed with the patient's who stated that she would not want the patient to be resuscitated if his heart were to stop. She also would not want a central line since the patient would have to be restrained in order to not pull at the central line. She would like to proceed with conservative treatment with antibiotics and fluids and see if the patient's condition improves. Source of information is ER records, group home records hand physician report. Family was no longer at bedside when I evaluated the patient. Patient was evaluated in the ER. The patient's home med rec is still not available for my review. Review of Systems Review of Systems: ROS unobtainable: Yes unobtainable due to mental status PMFSH Past Medical History Medical History (Updated 08/26/22 @ 23:05 by Minnie Padilla DO) Alzheimer's dementia BPH (benign prostatic hyperplasia) Bulging lumbar disc Chronic indwelling Winters catheter GERD (gastroesophageal reflux disease) Glaucoma Surgical History Surgical History (Updated 08/27/22 @ 03:28 by Minnie Padilla DO) History of right hip replacement Due to fracture Status post cataract extraction of both eyes with insertion of intraocular lens Family History Family History Mother Patient's mother is in good health Father Patient's father is in good health Sibling Patient's sister is in good health Patient's brother is in good health Other Family history of pancreatic cancer Social History Social History (Updated 08/26/22 @ 22:57 by Minnie Padilla DO) Social History: The patient is . Code status: DNR/DNI. No central line. Surrogate decision maker: Smoking packs per day: 1 Smoking cigarettes per day: 20.0 Years smoked: 5 Smoking pack-years: 5.00 Smoking status: Former smoker Second hand tobacco smoke exposure: No Smoking end date: 06/09/89 Alcohol intake: never Substance use: never Meds Home Medications and Allergies Home Medications Medication Instructions Recorded Confirmed Type cetirizine 10 mg capsule 10 mg PO DAILY 08/10/19 01/10/21 History famotidine 10 mg tablet (Pepcid AC) 10 mg PO DAILY 08/10/19 01/10/21 History latanoprost (PF) 0.005 % eye drops 1 drop ophthalmic (eye) DAILY 08/10/19 01/10/21 History timolol 0.25 % eye drops (Betimol) 1 drop ophthalmic (eye) Q12H 08/10/19 01/10/21 History benzonatate 200 mg capsule 200 mg PO TID PRN cough #30 caps 08/28/20 01/10/21 Rx zonisamide 100 mg capsule 200 mg PO DAILY #180 caps 01/01/21 01/10/21 Rx amitriptyline 75 mg tablet 75 mg PO QHS #90 tabs 01/05/21 01/10/21 Rx donepezil 10 mg tablet 10 mg PO DAILY #90 tabs 01/05/21 01/10/21 Rx gabapentin 300 mg capsule 300 mg PO TID #270 caps 01/05/21
--- NOTE | 2022-08-26 23:42 | PC.NURSE ---
Report given to Krystle GRIMES
[2022-08-27] VITALS (47 sets, daily range): BP systolic 82–113; BP diastolic 51–63; PULSE 88–115; RESP 13–25; TEMP 36.8–39.2; O2SAT 97–100; BMI 23.8
--- NOTE | 2022-08-27 03:24 | PC.NURSE ---
spoke with dr. ramirez regarding cbi being clear, she suggests slowing down and checking with urology for orders
--- NOTE | 2022-08-27 06:28 | ADMGEN ---
This patient, Dandy Silverman, was admitted to IMU Room 232-01. Patient/family oriented to hospital policies and general routines including ID bracelet, bed and alarms, visiting hours, pain management, procedures, bathroom and other care routines, personal items, smoking policy, room service/diet, and visiting hours. Information on how to activate the Rapid Response Team has been discussed. Patient/Family are encouraged to report perceived risks to care and to ask questions if they do not understand what they are told or what they should do.
[2022-08-27 06:41] LABS: Hematocrit 35.1 % (42.0-52.0); Hemoglobin 11.2 g/dL (14.0-18.0); Mean Corpuscular HGB Conc 31.9 g/dl (32-36); Mean Corpuscular Hemoglobin 29.6 pg (26-34); Mean Corpuscular Volume 92.9 fl (80-100); Mean Platelet Volume 10.8 fl (7.4-10.4); Platelet Count Result 175 k/mm3 (150-375); Red Blood Count 3.78 M/mm3 (4.6-6.20); Red Cell Distribution Width 14.1 % (11.5-14.5); White Blood Count 34.3 K/mm3 (4.5-10.0)
[2022-08-27 06:55] LABS: Albumin Level 3.2 g/dL (3.5-5.1); Alkaline Phosphatase 63 U/L (38-126); Anion Gap 6 mmol/L (8-16); Aspartate Amino Transferase 45 U/L (17-59); Bilirubin,Total 0.6 mg/dL (0.2-1.3); Blood Urea Nitrogen 25 mg/dL (9-20); Calcium 8.2 mg/dL (8.4-10.2); Carbon Dioxide 23 mmol/L (22-30); Chloride 114 mmol/L (98-107); Estimated CRCL calculation 42 ml/min; Estimated Glomerular Filt Rate 47; Glucose 101 mg/dL (65-110); Potassium 3.3 mmol/L (3.4-5.0); Sodium 143 mmol/L (137-145)
[2022-08-27 06:58] LABS: Lactic Acid Reflex 3.2 mmol/L (0.7-2.0)
[2022-08-27 07:01] LABS: Alanine Aminotransferase 37 U/L (6-50)
[2022-08-27 07:19] LABS: Band Neutrophils Percent 13 % (0-6); Lymphocytes Absolute Manual 0.34 K/mm3 (1.1-4.5); Lymphocytes Percent Manual 1 % (18-44); Monocytes Absolute Manual 2.05 K/mm3 (0.1-0.90); Monocytes Percent Manual 6 % (3-9); Neutrophils Absolute Manual 31.89 K/mm3 (1.3-6.7); Neutrophils Percent Manual 80 % (46-73); Platelet Estimate Adequate (Adequate); Total Cells Counted 100
[2022-08-27 07:20] LABS: Schistocytes None Seen (NORMAL)
[2022-08-27 09:33] LABS: Reflex Lactic Acid Yes or No Add Lactic
--- NOTE | 2022-08-27 09:45 | P.PNIM_ITS ---
Progress Note: A&P Assessment and Plan (1) Severe sepsis: Code(s): A41.9 - Sepsis, unspecified organism; R65.20 - Severe sepsis without septic shock Status: Acute Assessment and Plan: * Chronic urinary catheter * Meets sirs criteria with leukocytosis, fever, tachycardia * Source of infection urinary * UA appeared infectious * Continue ceftriaxone * Fluid bolus given 30ml/kg x2 * Continue maintenance fluids for now * WBC continues to rise at 34.3 * Trend labs * Blood cultures pending (2) WILLIE (acute kidney injury): Code(s): N17.9 - Acute kidney failure, unspecified Status: Acute Assessment and Plan: * Current BUN/Cr 25/1.50 * Baseline creatinine appears to be 0.9 * Most likely related to sepsis and dehydration * IV fluids given * Continue to trend labs * Adjust therapy as indicated (3) Obstructed Winters catheter: Code(s): T83.091A - Other mechanical complication of indwelling urethral catheter, initial encounter Status: Acute Assessment and Plan: * Catheter changed in the ED * Found to have hematuria, and retention * CBI initiated * Continue to trend urine output * Adjust therapy as indicate (4) Acute UTI: Code(s): N39.0 - Urinary tract infection, site not specified Status: Acute Assessment and Plan: * UA appears to be infectious * Continue Rocephin * Awaiting urine culture * Adjust therapy as indicated * tailor antibiotic to culture results (5) Gross hematuria: Code(s): R31.0 - Gross hematuria Status: Acute Assessment and Plan: * Seems to be better at this time * Urology consulted * CT ordered and pending * Trend H/H * Adjust therapy as indicated Time Spent With Patient Time: 54 minutes Time with patient: Greater than 35 minutes Subjective Date/time seen: 08/27/22944 Interval history: 08/27/22944 Patient was nonverbal with me. He did appear to comfortable. Catheter is draining a clear yellow urine. Blood pressure has been slightly low today. No other fevers noted. Complete review of systems unable to be done due to patient's mental status. 08/26/22? 22:50 67-year-old male with past medical history of dementia, chronic urinary retention with chronic indwelling Winters catheter, glaucoma and GERD who presented to the ER via EMS from [facility] due to hematuria noted in Winters catheter on arrival to the ER the patient was febrile with a T- max of 103.8?.? The ER physician let me know that the patient's bladder was noted bleed distended on exam and his Winters catheter was not draining.? His catheter was exchanged in the the ER and a 3 way catheter was placed for bladder irrigation.? Urology was consulted.? The patient was placed on antibiotic therapy with Rocephin.? A review of our records indicate that the patient does not have a history of drug-resistant UTIs in the past.? The patient was noted to be tachycardic.? He also developed some borderline hypotension after exchange of the Winters catheter.? He had lactic acidosis with a lactic acid 2.6 with repeat of 2.1 after receiving 1 L normal saline bolus.? The patient was given a 2 L of normal saline.? The patient's case was discussed with the patient's who stated that she would not want the patient to be resuscitated if his heart were to sto
--- NOTE | 2022-08-27 09:45 | PM.IMPN ---
Progress Note: A&P Assessment and Plan (1) Severe sepsis: Code(s): A41.9 - Sepsis, unspecified organism; R65.20 - Severe sepsis without septic shock Status: Acute Assessment and Plan: Chronic urinary catheter Meets sirs criteria with leukocytosis, fever, tachycardia Source of infection urinary UA appeared infectious Continue ceftriaxone Fluid bolus given 30ml/kg x2 Continue maintenance fluids for now WBC continues to rise at 34.3 Trend labs Blood cultures pending (2) WILLIE (acute kidney injury): Code(s): N17.9 - Acute kidney failure, unspecified Status: Acute Assessment and Plan: Current BUN/Cr 25/1.50 Baseline creatinine appears to be 0.9 Most likely related to sepsis and dehydration IV fluids given Continue to trend labs Adjust therapy as indicated (3) Obstructed Winters catheter: Code(s): T83.091A - Other mechanical complication of indwelling urethral catheter, initial encounter Status: Acute Assessment and Plan: Catheter changed in the ED Found to have hematuria, and retention CBI initiated Continue to trend urine output Adjust therapy as indicate (4) Acute UTI: Code(s): N39.0 - Urinary tract infection, site not specified Status: Acute Assessment and Plan: UA appears to be infectious Continue Rocephin Awaiting urine culture Adjust therapy as indicated tailor antibiotic to culture results (5) Gross hematuria: Code(s): R31.0 - Gross hematuria Status: Acute Assessment and Plan: Seems to be better at this time Urology consulted CT ordered and pending Trend H/H Adjust therapy as indicated Time Spent With Patient Time: 54 minutes Time with patient: Greater than 35 minutes Subjective Date/time seen: 08/27/22944 Interval history: 08/27/22944 Patient was nonverbal with me. He did appear to comfortable. Catheter is draining a clear yellow urine. Blood pressure has been slightly low today. No other fevers noted. Complete review of systems unable to be done due to patient's mental status. 08/26/22? 22:50 67-year-old male with past medical history of dementia, chronic urinary retention with chronic indwelling Winters catheter, glaucoma and GERD who presented to the ER via EMS from [facility] due to hematuria noted in Winters catheter on arrival to the ER the patient was febrile with a T-max of 103.8?.? The ER physician let me know that the patient's bladder was noted bleed distended on exam and his Winters catheter was not draining.? His catheter was exchanged in the the ER and a 3 way catheter was placed for bladder irrigation.? Urology was consulted.? The patient was placed on antibiotic therapy with Rocephin.? A review of our records indicate that the patient does not have a history of drug-resistant UTIs in the past.? The patient was noted to be tachycardic.? He also developed some borderline hypotension after exchange of the Winters catheter.? He had lactic acidosis with a lactic acid 2.6 with repeat of 2.1 after receiving 1 L normal saline bolus.? The patient was given a 2 L of normal saline.? The patient's case was discussed with the patient's who stated that she would not want the patient to be resuscitated if his heart were to stop.? She also would not want a central line since the patient would have to be restrained in order to not pull at the central line.? She would like to proceed with conservative treatment with antibiotics and fluids and see if the patient's condition improves. Source of information is ER records, [facility] hand physician report.? Family was no longer at bedside when I evaluated the patient.? Patient was evaluated in the ER.? The patient's home med rec is still not available for my review. Review of Systems Review of Systems: ROS unobtainable
[2022-08-27] MEDS: POTASSIUM CHLORIDE 20 MEQ TABLET 40 MEQ PO (10:25)
[2022-08-27] MEDS: CALCIUM CARBONATE (TUMS) 500 MG (200 MG ELEMENTAL) PO ×2 (10:25→18:16)
[2022-08-27] MEDS: FINASTERIDE 5 MG TABLET PO (10:26)
[2022-08-27] MEDS: CARBIDOPA/LEVODOPA 10/100 MG TABLET 1 TABLET PO ×3 (10:26→18:16)
[2022-08-27] MEDS: busPIRone HCL 5 MG TABLET PO ×2 (10:26→21:01)
[2022-08-27] MEDS: QUEtiapine FUMARATE 25 MG TABLET 50 MG PO ×2 (10:26→20:55)
[2022-08-27] MEDS: LORATADINE 10 MG TABLET PO (10:26)
[2022-08-27] MEDS: CYANOCOBALAMIN 500 MCG TABLET PO (10:26)
[2022-08-27] MEDS: ZONISAMIDE 100 MG CAPSULE 200 MG PO (10:26)
[2022-08-27] MEDS: DONEPEZIL HCL 10 MG TABLET PO (10:27)
[2022-08-27] MEDS: MEMANTINE 10 MG TABLET PO ×2 (10:27→21:01)
[2022-08-27] MEDS: GABAPENTIN 300 MG CAPSULE PO ×3 (10:27→18:16)
[2022-08-27] MEDS: ESCITALOPRAM OXALATE 10 MG TABLET PO (10:27)
[2022-08-27] MEDS: FAMOTIDINE 10 MG TABLET PO (10:27)
[2022-08-27] MEDS: busPIRone HCL 2.5 MG TABLET PO ×2 (10:27→21:01)
[2022-08-27 10:28] LABS: Lactic Acid 2.3 mmol/L (0.7-2.0)
[2022-08-27] MEDS: TIMOLOL MALEATE 0.25% OP SOLN 5 ML BOTTLE 1 DROP EACH EYE ×2 (10:28→20:59)
[2022-08-27] MEDS: ASPIRIN 81 MG CHEWABLE TABLET PO (10:29)
--- NOTE | 2022-08-27 11:40 | PCSTNOTE ---
Patient would not arouse for Bedside Swallow Study at appr. 8:30 am.
--- NOTE | 2022-08-27 12:04 | WPDURCON ---
Assessment and Plan Assessment and plan (1) Gross hematuria: Code(s): R31.0 - Gross hematuria Status: Acute Assessment and Plan: CT/KUB done to evaluate gross hematuria and rule out sources other than UTI. An outpatient cystoscopy may be needed if patient is able to do so. (2) Obstructed Nascimento catheter: Code(s): T83.091A - Other mechanical complication of indwelling urethral catheter, initial encounter Status: Acute Assessment and Plan: Nascimento changed in the ER yesterday, draining to gravity with clear, yellow urine at this time. Continue monthly changes at nursing on starting 09/26/22. (3) Acute UTI: Code(s): N39.0 - Urinary tract infection, site not specified Status: Acute Assessment and Plan: Continue Ceftriaxone, tailor to urine culture results. (4) BPH (benign prostatic hyperplasia): Code(s): N40.0 - Benign prostatic hyperplasia without lower urinary tract symptoms Status: Acute Assessment and Plan: Contineu Finasteride. (5) Retention of urine: Code(s): R33.9 - Retention of urine, unspecified Status: Acute Urology Consult Note HPI Date Seen: 08/27/22 Time Seen: 09:00 Requesting Physician: Minnie Padilla DO Primary Care Provider: Ambrose Blas MD Consult Narrative Reason for consult: Gross Hematuria Narrative: Dandy Silverman is a 67 year old male who presents to the ER yesterday with gross hematuria in his catheter and bladder distention. The patient has a chronic indwelling nascimento that is managed by our practice, but changed by the [facility] monthly. He has Parkinsons and is not communicative and unable to self catheterize. He had CBI started after placement of a [address] way nascimento catheter d/t an obstructed nascimento catheter. THe urine has now cleared and CBI was weaned to off. UA is suggestive of a UTI and nitrate positive, urine culture is pending. He is tachycardic and febrile. He remains on Ceftriaxone at this time. He is on Finasteride as well d/t BPH and to ensure easier monthly catheter changes. No imaging has been done at this time for the gross hematuria. His WBC 34.3 and creatinine is 1.50. All infomration was obtained from his chart. Review of Systems Review of Systems: ROS unobtainable: Yes unobtainable due to medical condition [facility] Past Medical History Medical History Alzheimer's dementia BPH (benign prostatic hyperplasia) Bulging lumbar disc Chronic indwelling Nascimento catheter GERD (gastroesophageal reflux disease) Glaucoma Surgical History Surgical History History of right hip replacement Due to fracture Status post cataract extraction of both eyes with insertion of intraocular lens Family History Family History Mother Patient's mother is in good health Father Patient's father is in good health Sibling Patient's sister is in good health Patient's brother is in good health Other Family history of pancreatic cancer Social History Social History Social History: The patient is . Code status: DNR/DNI. No central line. Surrogate decision maker: Smoking packs per day: 1 Smoking cigarettes per day: 20.0 Years smoked: 5 Smoking pack-years: 5.00 Smoking status: Former smoker Second hand tobacco smoke exposure: No Smoking end date: 06/09/89 Alcohol intake: unknown Substance use: unknown Spiritual care concerns: No Meds Home Medications and Allergies Home Medications Medication Instructions Recorded Confirmed Type cetirizine 10 mg capsule 10 mg PO DAILY 08/10/19 08/27/22 History famotidine 10 mg tablet (Pepcid AC) 10 mg PO DAILY 08/10/19 08/27/22 History latanoprost (PF) 0.005 % eye drops 1 drop op
[2022-08-27] MEDS: LACTATED RINGERS 1,000 ML 125 ML IV CONT ×2 (15:49→23:30)
[2022-08-27] MEDS: MIRTAZAPINE 7.5 MG TABLET PO (21:01)
[2022-08-28] VITALS (11 sets, daily range): BP systolic 91–130; BP diastolic 45–62; PULSE 62–93; RESP 12–18; TEMP 36.8–38.1; O2SAT 93–100
[2022-08-28 05:21] LABS: Basophils Absolute Auto 0.1 K/mm3 (0.0-0.1); Basophils Percent Auto 0.6 % (0.2-1.2); Eosinophils Absolute Auto 0.1 K/mm3 (0-0.3); Eosinophils Percent Auto 0.3 % (0-4.4); Hematocrit 33.4 % (42.0-52.0); Hemoglobin 10.6 g/dL (14.0-18.0); Immature Granulocyte Absolute 0.14 K/mm3 (0.00-0.031); Immature Platelet Fraction Pct 6.3 % (0.9-11.2); Lymphocytes Absolute Auto 0.79 K/mm3 (0.9-3.2); Lymphocytes Percent Auto 5.4 % (18.3-44.2); Mean Corpuscular HGB Conc 31.7 g/dl (32-36); Mean Corpuscular Hemoglobin 29.2 pg (26-34); Monocytes Absolute Auto 0.6 K/mm3 (0.1-0.6); Monocytes Percent Auto 4.2 % (2.6-8.5); Neutrophils Absolute Auto 12.9 K/mm3 (1.3-6.7); Neutrophils Percent Auto 88.5 % (45.5-73.1); Platelet Count Result 129 k/mm3 (150-375); Red Blood Count 3.63 M/mm3 (4.6-6.20); Red Cell Distribution Width 14.3 % (11.5-14.5); White Blood Count 14.6 K/mm3 (4.5-10.0)
[2022-08-28 05:30] LABS: Alanine Aminotransferase 22 U/L (6-50); Alkaline Phosphatase 70 U/L (38-126); Anion Gap 2 mmol/L (8-16); Aspartate Amino Transferase 59 U/L (17-59); Bilirubin,Total 0.6 mg/dL (0.2-1.3); Blood Urea Nitrogen 26 mg/dL (9-20); Calcium 8.5 mg/dL (8.4-10.2); Carbon Dioxide 27 mmol/L (22-30); Chloride 114 mmol/L (98-107); Estimated CRCL calculation 39 ml/min; Estimated Glomerular Filt Rate 43; Glucose 88 mg/dL (65-110); Magnesium 1.8 mg/dL (1.6-2.3); Potassium 3.9 mmol/L (3.4-5.0); Sodium 143 mmol/L (137-145)
[2022-08-28] MEDS: LACTATED RINGERS 1,000 ML 125 ML IV CONT ×3 (07:43→23:49)
[2022-08-28] MEDS: FAMOTIDINE 10 MG TABLET PO (08:27)
[2022-08-28] MEDS: ZONISAMIDE 100 MG CAPSULE 200 MG PO (08:27)
[2022-08-28] MEDS: CALCIUM CARBONATE (TUMS) 500 MG (200 MG ELEMENTAL) PO ×2 (08:27→16:44)
[2022-08-28] MEDS: DONEPEZIL HCL 10 MG TABLET PO (08:28)
[2022-08-28] MEDS: MEMANTINE 10 MG TABLET PO ×2 (08:28→20:35)
[2022-08-28] MEDS: CYANOCOBALAMIN 500 MCG TABLET PO (08:28)
[2022-08-28] MEDS: LORATADINE 10 MG TABLET PO (08:28)
[2022-08-28] MEDS: GABAPENTIN 300 MG CAPSULE PO ×3 (08:28→16:44)
[2022-08-28] MEDS: ENOXAPARIN 40 MG/0.4 ML SYRINGE SUB-Q (08:28)
[2022-08-28] MEDS: busPIRone HCL 2.5 MG TABLET PO ×2 (08:28→20:35)
[2022-08-28] MEDS: busPIRone HCL 5 MG TABLET PO ×2 (08:28→20:36)
[2022-08-28] MEDS: ASPIRIN 81 MG CHEWABLE TABLET PO (08:28)
[2022-08-28] MEDS: ESCITALOPRAM OXALATE 10 MG TABLET PO (08:28)
[2022-08-28] MEDS: FINASTERIDE 5 MG TABLET PO (08:28)
[2022-08-28] MEDS: CARBIDOPA/LEVODOPA 10/100 MG TABLET 1 TABLET PO ×3 (08:28→16:44)
[2022-08-28] MEDS: TIMOLOL MALEATE 0.25% OP SOLN 5 ML BOTTLE 1 DROP EACH EYE ×2 (08:29→20:37)
[2022-08-28] MEDS: QUEtiapine FUMARATE 25 MG TABLET 50 MG PO ×2 (08:29→20:35)
[2022-08-28] MEDS: LATANOPROST 0.005% OP SOLN 2.5 ML BTL 1 DROP EACH EYE (08:29)
--- NOTE | 2022-08-28 09:30 | P.PNIM_ITS ---
Progress Note: A&P Assessment and Plan (1) Severe sepsis: Code(s): A41.9 - Sepsis, unspecified organism; R65.20 - Severe sepsis without septic shock Status: Acute Assessment and Plan: * Chronic urinary catheter * Meets sirs criteria with leukocytosis, fever, tachycardia * Source of infection urinary * UA appeared infectious * Urine culture grew Proteus mirabilis * Continue ceftriaxone * Fluid bolus given 30ml/kg x2 * Continue maintenance fluids for now * WBC decreased to 14.6 * Trend labs * Blood cultures NGTD (2) WILLIE (acute kidney injury): Code(s): N17.9 - Acute kidney failure, unspecified Status: Acute Assessment and Plan: * Current BUN/Cr 26/1.60 * Baseline creatinine appears to be 0.9 * Most likely related to sepsis and dehydration * IV fluids given * Continue to trend labs * Adjust therapy as indicated (3) Obstructed Winters catheter: Code(s): T83.091A - Other mechanical complication of indwelling urethral catheter, initial encounter Status: Acute Assessment and Plan: * Catheter changed in the ED * Found to have hematuria, and retention * CBI stopped * CT of the abd/pel shows multiple bladder stones, and mild hydroureter * Continue to trend urine output * Adjust therapy as indicate (4) Acute UTI: Code(s): N39.0 - Urinary tract infection, site not specified Status: Acute Assessment and Plan: * UA appears to be infectious * Continue Rocephin * urine culture grew Proteus mirabilis * Adjust therapy as indicated * change antibiotics to cefdinir in the a.m. (5) Gross hematuria: Code(s): R31.0 - Gross hematuria Status: Acute Assessment and Plan: * Seems to be better at this time * Urology consulted * CT multiple bladder stones and mild hydroureter * Trend H/H remained stable * Adjust therapy as indicated (6) Fecal impaction: Code(s): K56.41 - Fecal impaction Status: Acute Assessment and Plan: * CT indicated fecal impaction * Enema, lactulose, suppository, miralax and colace on board * Large BM noted * Continue for now (7) Hydronephrosis: Code(s): N13.30 - Unspecified hydronephrosis Status: Acute Assessment and Plan: * CT indicated hydroureter * Renal ultrasound in the am * Urology consulted * Continue urinary catheter * Trend urine output * adjust therapy as indicated Time Spent With Patient Time: 54 minutes 38 minutes spent with family with updates and review of chart Time with patient: Greater than 35 minutes Subjective Date/time seen: 08/28/22929 Interval history: 08/28/22929 patient was lying in bed peacefully. Patient was able to verbalize any issues. He did state that he was having some abdominal pain especially in his stomach. Urinary catheter is present and still draining a yellow urine. Unable to get a full review of systems due to patient's mental status. Did meet the patient's later in the afternoon to give update. It was explained that the patient did have UTI and she was more concerned that the urinary catheter was not feasible. went over CT results with the patient's answered all questions. Also rev
--- NOTE | 2022-08-28 09:30 | PM.IMPN ---
Progress Note: A&P Assessment and Plan (1) Severe sepsis: Code(s): A41.9 - Sepsis, unspecified organism; R65.20 - Severe sepsis without septic shock Status: Acute Assessment and Plan: Chronic urinary catheter Meets sirs criteria with leukocytosis, fever, tachycardia Source of infection urinary UA appeared infectious Urine culture grew Proteus mirabilis Continue ceftriaxone Fluid bolus given 30ml/kg x2 Continue maintenance fluids for now WBC decreased to 14.6 Trend labs Blood cultures NGTD (2) WILLIE (acute kidney injury): Code(s): N17.9 - Acute kidney failure, unspecified Status: Acute Assessment and Plan: Current BUN/Cr 26/1.60 Baseline creatinine appears to be 0.9 Most likely related to sepsis and dehydration IV fluids given Continue to trend labs Adjust therapy as indicated (3) Obstructed Winters catheter: Code(s): T83.091A - Other mechanical complication of indwelling urethral catheter, initial encounter Status: Acute Assessment and Plan: Catheter changed in the ED Found to have hematuria, and retention CBI stopped CT of the abd/pel shows multiple bladder stones, and mild hydroureter Continue to trend urine output Adjust therapy as indicate (4) Acute UTI: Code(s): N39.0 - Urinary tract infection, site not specified Status: Acute Assessment and Plan: UA appears to be infectious Continue Rocephin urine culture grew Proteus mirabilis Adjust therapy as indicated change antibiotics to cefdinir in the a.m. (5) Gross hematuria: Code(s): R31.0 - Gross hematuria Status: Acute Assessment and Plan: Seems to be better at this time Urology consulted CT multiple bladder stones and mild hydroureter Trend H/H remained stable Adjust therapy as indicated (6) Fecal impaction: Code(s): K56.41 - Fecal impaction Status: Acute Assessment and Plan: CT indicated fecal impaction Enema, lactulose, suppository, miralax and colace on board Large BM noted Continue for now (7) Hydronephrosis: Code(s): N13.30 - Unspecified hydronephrosis Status: Acute Assessment and Plan: CT indicated hydroureter Renal ultrasound in the am Urology consulted Continue urinary catheter Trend urine output adjust therapy as indicated Time Spent With Patient Time: 54 minutes 38 minutes spent with family with updates and review of chart Time with patient: Greater than 35 minutes Subjective Date/time seen: 08/28/22929 Interval history: 08/28/22929 patient was lying in bed peacefully. Patient was able to verbalize any issues. He did state that he was having some abdominal pain especially in his stomach. Urinary catheter is present and still draining a yellow urine. Unable to get a full review of systems due to patient's mental status. Did meet the patient's later in the afternoon to give update. It was explained that the patient did have UTI and she was more concerned that the urinary catheter was not feasible. went over CT results with the patient's answered all questions. Also reviewed all medications and changes at this time. Spoke with Urology. plan of care is to have patient follow up outpatient for further intervention and treatment if indicated. It appears that the urinary catheter was not positioned properly upon initiation at the custodial. WBCs are trending down urine function is also trending stable. 08/27/22 09 Patient was nonverbal with me. He did appear to comfortable. Catheter is draining a clear yellow urine. Blood pressure has been slightly low today. No other fevers noted. Complete review of systems unable to be done due to patient's mental status. 08/26/22? 22:50 67-year-old male with past medical hist
[2022-08-28] MEDS: polyethylene glycoL 3350 17 GM POWD.PACK PO (12:38)
[2022-08-28] MEDS: DOCUSATE SODIUM 100 MG CAPSULE PO ×2 (12:38→20:36)
--- NOTE | 2022-08-28 16:49 | WPDUROPN2 ---
Progress Note: A&P Assessment and Plan (1) Retention of urine: Code(s): R33.9 - Retention of urine, unspecified Status: Acute (2) Gross hematuria: Code(s): R31.0 - Gross hematuria Status: Acute (3) Acute UTI: Code(s): N39.0 - Urinary tract infection, site not specified Status: Acute (4) Obstructed Winters catheter: Code(s): T83.091A - Other mechanical complication of indwelling urethral catheter, initial encounter Status: Acute (5) Hydronephrosis: Code(s): N13.30 - Unspecified hydronephrosis Status: Acute (6) Fecal impaction: Code(s): K56.41 - Fecal impaction Status: Acute Plan Dandy Silverman is a 67 year old male who presented to the ER on August 26, 2022 with urinary tract infection, gross hematuria, obstructed indwelling catheter. -UTI: Proteus infection growing. White blood cell count improving. Continue Rocephin -hematuria: Resolved. Bilateral hydronephrosis, bladder stones, stool impaction present on CT - plan repeat imaging in 24-48 hours. -bilateral hydronephrosis and creatinine of 1.6 (baseline 1.0): Obstruction and renal insufficiency is likely secondary to obstruction previously this Winters catheter and significant stool impaction. Recommend fecal emptying protocol and continue Winters catheter. Continue to follow kidney function. Consider renal ultrasound in 48hours to ensure improvement of hydronephrosis. Consider renal scan and/or cystoscopy and ureteral stent insertion if persistent hydronephrosis or renal insufficiency - Urinary retention: Continue Winters catheter with monthly exchanges. consider outpatient SP tube insertion. Subjective Subjective Date/Time Seen: 08/28/22 16:49 RN reports large bowel movement today Exam Narrative: pt is awake and non-verbal abdomen is soft Winters in place with clear urine Objective Data Vital Signs Vital Signs: Vital Signs - 24 hr 08/27/22 18:00 08/27/22 20:48 08/27/22 20:00 Temperature 38.8 C H 39.2 C H Pulse Rate 99 101 H Respiratory Rate 22 H Blood Pressure 113/51 L Pulse Oximetry 99 Oxygen Delivery 08/28/22 00:00 08/27/22 20:00 08/27/22 20:00 Temperature 38.1 C H Pulse Rate 90 89 89 Respiratory Rate 18 Blood Pressure 92/50 L Pulse Oximetry 96 Oxygen Delivery Room Air 08/27/22 22:00 08/28/22 00:00 08/28/22 00:00 Temperature Pulse Rate 93 89 75 Respiratory Rate Blood Pressure Pulse Oximetry Oxygen Delivery Room Air 08/28/22 02:00 08/28/22 04:00 08/28/22 04:00 Temperature Pulse Rate 65 89 62 Respiratory Rate Blood Pressure Pulse Oximetry Oxygen Delivery Room Air 08/28/22 04:00 08/28/22 06:00 08/28/22 08:00 Temperature 36.8 C 37.1 C Pulse Rate 71 72 81 Respiratory Rate 12 16 Blood Pressure 104/45 L 114/49 L Pulse Oximetry 100 93 Oxygen Delivery 08/28/22 08:00 08/28/22 10:00 08/28/22 08:00 Temperature Pulse Rate 77 73 Respiratory Rate Blood Pressure Pulse Oximetry Oxygen Delivery Room Air 08/28/22 12:00 08/28/22 12:00 08/28/22 12:00 Temperature 37.2 C Pulse Rate 93 74 Respiratory Rate 18 Blood Pressure 130/62 Pulse Oximetry 98 Oxygen Delivery Room Air 08/28/22 14:00 Temperature Pulse Rate 87 Respiratory Rate Blood Pressure Pulse Oximetry Oxygen Delivery Intake/Output Intake/Output: Intake & Output 08/25/22 08/26/22 08/27/22 08/28/22 23:59 23:59 23:59 23:59 Intake Total 04817 2150 2240 Output Total 76045 4375 425 Balance 1650 -2225 1815 Meds/Results Medications: Active Medications Generic Name Dose Route Start Last Admin Trade Name Raul PRN Reason Stop Dose Admin Aspirin 81 mg 08/27/22 09:00 08/28/22 08:28 Aspirin 81 Mg Chewable Tablet PO 81 mg DAILY SUE Administration Buspirone HCl 5 mg 08/27/22 09:00 08/28/22 08:28 Buspirone Hcl 5 Mg Tablet PO 5 mg Q12HR SUE Administration Buspi
[2022-08-28] MEDS: MIRTAZAPINE 7.5 MG TABLET PO (20:35)
[2022-08-29] VITALS: BP 119/55; PULSE 69; RESP 16; TEMP 36.8; O2SAT 98
[2022-08-29 05:14] LABS: Basophils Absolute Auto 0.1 K/mm3 (0.0-0.1); Basophils Percent Auto 0.6 % (0.2-1.2); Eosinophils Absolute Auto 0.2 K/mm3 (0-0.3); Eosinophils Percent Auto 2.3 % (0-4.4); Hematocrit 29.6 % (42.0-52.0); Hemoglobin 9.7 g/dL (14.0-18.0); Immature Granulocyte Absolute 0.08 K/mm3 (0.00-0.031); Immature Granulocyte Percent A 0.8 % (0-0.5); Immature Platelet Fraction Pct 6.9 % (0.9-11.2); Lymphocytes Absolute Auto 0.95 K/mm3 (0.9-3.2); Mean Corpuscular HGB Conc 32.8 g/dl (32-36); Mean Corpuscular Hemoglobin 28.9 pg (26-34); Mean Corpuscular Volume 88.1 fl (80-100); Mean Platelet Volume 11.1 fl (7.4-10.4); Monocytes Absolute Auto 0.9 K/mm3 (0.1-0.6); Monocytes Percent Auto 9.7 % (2.6-8.5); Neutrophils Absolute Auto 7.3 K/mm3 (1.3-6.7); Neutrophils Percent Auto 76.6 % (45.5-73.1); Platelet Count Result 104 k/mm3 (150-375); Red Blood Count 3.36 M/mm3 (4.6-6.20); Red Cell Distribution Width 13.9 % (11.5-14.5); White Blood Count 9.5 K/mm3 (4.5-10.0)
[2022-08-29 05:31] LABS: Alanine Aminotransferase 23 U/L (6-50); Albumin Level 2.6 g/dL (3.5-5.1); Alkaline Phosphatase 73 U/L (38-126); Anion Gap 2 mmol/L (8-16); Aspartate Amino Transferase 63 U/L (17-59); Bilirubin,Total 0.5 mg/dL (0.2-1.3); Blood Urea Nitrogen 20 mg/dL (9-20); Calcium 7.7 mg/dL (8.4-10.2); Carbon Dioxide 26 mmol/L (22-30); Chloride 110 mmol/L (98-107); Estimated CRCL calculation 48 ml/min; Estimated Glomerular Filt Rate 55; Glucose 86 mg/dL (65-110); Magnesium 1.7 mg/dL (1.6-2.3); Potassium 3.4 mmol/L (3.4-5.0); Sodium 138 mmol/L (137-145)
--- NOTE | 2022-08-29 07:20 | WPDUROPN2 ---
Progress Note: A&P Assessment and Plan (1) Retention of urine: Code(s): R33.9 - Retention of urine, unspecified Status: Acute (2) Gross hematuria: Code(s): R31.0 - Gross hematuria Status: Acute (3) Acute UTI: Code(s): N39.0 - Urinary tract infection, site not specified Status: Acute (4) Obstructed Winters catheter: Code(s): T83.091A - Other mechanical complication of indwelling urethral catheter, initial encounter Status: Acute (5) Hydronephrosis: Code(s): N13.30 - Unspecified hydronephrosis Status: Acute (6) Fecal impaction: Code(s): K56.41 - Fecal impaction Status: Acute Plan Dandy Silverman is a 67 year old male who presented to the ER on August 26, 2022 with urinary tract infection, gross hematuria, obstructed indwelling catheter. -UTI: Proteus infection growing. White blood cell count improving. Continue Rocephin -hematuria: Resolved. Bilateral hydronephrosis, bladder stones, stool impaction present on CT - plan repeat imaging in 24-48 hours. -bilateral hydronephrosis and creatinine of 1.6 (baseline 1.0): Obstruction and renal insufficiency is likely secondary to obstruction previously this Winters catheter and significant stool impaction. Recommend fecal emptying protocol and continue Winters catheter. Continue to follow kidney function. Consider renal ultrasound in 48hours to ensure improvement of hydronephrosis. Consider renal scan and/or cystoscopy and ureteral stent insertion if persistent hydronephrosis or renal insufficiency - Urinary retention: Continue Winters catheter with monthly exchanges. consider outpatient SP tube insertion. 08/29/2022 Comfortable and urine clear - hematuria has resolved. Serum creat. improved to 1.3 today. Renal u/s tomorrow to insure hydronephrosis has resolved. Subjective Subjective Date/Time Seen: 08/29/22 07:20 Comfortable, NAEO Review of Systems Review of Systems: ROS unobtainable: Yes unobtainable due to mental status Exam Const: General: no acute distress Resp: Effort & Inspection: normal respiratory effort GI: Inspection: non-distended GI Palp: No abdominal tenderness and No Guarding due to palpation present (GI) Auscultation: normal bowel sounds Urinary Catheter: Urinary Catheter: patent and draining and urine clear Objective Data Vital Signs Vital Signs: Vital Signs - 24 hr 08/28/22 08:00 08/28/22 08:00 08/28/22 10:00 Temperature 98.8 F Pulse Rate 81 77 73 Respiratory Rate 16 Blood Pressure 114/49 L Pulse Oximetry 93 Oxygen Delivery 08/28/22 08:00 08/28/22 12:00 08/28/22 12:00 Temperature 98.9 F Pulse Rate 93 74 Respiratory Rate 18 Blood Pressure 130/62 Pulse Oximetry 98 Oxygen Delivery Room Air 08/28/22 12:00 08/28/22 14:00 08/28/22 16:00 Temperature 99.1 F Pulse Rate 87 81 Respiratory Rate 16 Blood Pressure 91/52 L Pulse Oximetry 100 Oxygen Delivery Room Air 08/28/22 19:34 08/28/22 20:00 08/29/22 00:00 Temperature 99 F 98.2 F Pulse Rate 84 84 69 Respiratory Rate 16 16 16 Blood Pressure 109/52 L 119/55 L Pulse Oximetry 98 98 98 Oxygen Delivery Room Air Intake/Output Intake/Output: Intake & Output 08/26/22 08/27/22 08/28/22 08/29/22 23:59 23:59 23:59 23:59 Intake Total 45980 2150 3530 40 Output Total 82372 4375 1425 700 Balance 1650 -5939 2105 -897 Meds/Results Medications: Active Medications Generic Name Dose Route Start Last Admin Trade Name Yefriq PRN Reason Stop Dose Admin Aspirin 81 mg 08/27/22 09:00 08/28/22 08:28 Aspirin 81 Mg Chewable Tablet PO 81 mg DAILY SUE Administration Buspirone HCl 5 mg 08/27/22 09:00 08/28/22 20:36 Buspirone Hcl 5 Mg Tablet PO 5 mg Q12HR SUE Administration Buspirone HCl 2.5 mg 08/27/22 09:00 08/28/22 20:35 Buspirone Hcl 2.5 Mg Tablet PO 2.5 mg Q12HR SUE Administration Calcium Carbonate 200 mg 08/27/22 09:00 08/28
[2022-08-29 08:00] VITALS: BP 98/56; PULSE 67; RESP 18; TEMP 36.6; O2SAT 100
[2022-08-29] MEDS: MAGNESIUM SULF 4 GM/WATER100ML 4 GM/100 ML BAG IVPB (08:53)
[2022-08-29] MEDS: LACTULOSE 20 GM/30 ML UDC PO (09:01)
[2022-08-29] MEDS: ZONISAMIDE 100 MG CAPSULE 200 MG PO (09:01)
[2022-08-29] MEDS: ESCITALOPRAM OXALATE 10 MG TABLET PO (09:03)
[2022-08-29] MEDS: busPIRone HCL 2.5 MG TABLET PO (09:03)
[2022-08-29] MEDS: DONEPEZIL HCL 10 MG TABLET PO (09:03)
[2022-08-29] MEDS: FAMOTIDINE 10 MG TABLET PO (09:03)
[2022-08-29] MEDS: CEFDINIR 300 MG CAPSULE PO (09:03)
[2022-08-29] MEDS: CYANOCOBALAMIN 500 MCG TABLET PO (09:03)
[2022-08-29] MEDS: CALCIUM CARBONATE (TUMS) 500 MG (200 MG ELEMENTAL) PO ×2 (09:03→17:03)
[2022-08-29] MEDS: QUEtiapine FUMARATE 25 MG TABLET 50 MG PO (09:03)
[2022-08-29] MEDS: ASPIRIN 81 MG CHEWABLE TABLET PO (09:03)
[2022-08-29] MEDS: ENOXAPARIN 40 MG/0.4 ML SYRINGE SUB-Q (09:04)
[2022-08-29] MEDS: MEMANTINE 10 MG TABLET PO (09:04)
[2022-08-29] MEDS: polyethylene glycoL 3350 17 GM POWD.PACK PO (09:04)
[2022-08-29] MEDS: busPIRone HCL 5 MG TABLET PO (09:04)
[2022-08-29] MEDS: FINASTERIDE 5 MG TABLET PO (09:04)
[2022-08-29] MEDS: CARBIDOPA/LEVODOPA 10/100 MG TABLET 1 TABLET PO ×3 (09:04→17:03)
[2022-08-29] MEDS: DOCUSATE SODIUM 100 MG CAPSULE PO (09:05)
[2022-08-29] MEDS: GABAPENTIN 300 MG CAPSULE PO ×3 (09:05→17:03)
[2022-08-29] MEDS: TIMOLOL MALEATE 0.25% OP SOLN 5 ML BOTTLE 1 DROP EACH EYE (09:05)
[2022-08-29] MEDS: LATANOPROST 0.005% OP SOLN 2.5 ML BTL 1 DROP EACH EYE (09:05)
[2022-08-29] MEDS: LORATADINE 10 MG TABLET PO (09:05)
[2022-08-29 09:09] VITALS: O2SAT 92
--- NOTE | 2022-08-29 11:01 | PCNFU ---
Nutrition Follow-Up Complete: Increased nutrient needs related to altered skin integrity as evidenced by DTPI to buttocks Goal:Diet advanced Meet estimated needs Pt is meeting goal. Continue with current goal Pt current nutrition is soft and bite sized, level 6. Nutrition recommendation: Add PASCUAL BID for wound healing Last recorded weight is 73.8 kg -stable Bowel Motility: +BM 08/27 Labs Reviewed:Hgb:9.7, HCT:29.6, Alb:2.6, GFR:55 Meds Noted: remeron, zofran Skin:DTPI to buttocks Additional Notes: Pt diet advanced to soft and bite sized level 6, regular. Intake good at 75-100% of meals. Add PASCUAL for wound healing. Monitor for diet order intake, wt, labs. Follow up in 7 days.
--- NOTE | 2022-08-29 11:42 | PM.DS ---
DS: Admitting Diagnosis Discharge Date 08/29/22 1130 Admitting Diagnosis UTi, Hydronephrosis, hematuria DS: Discharge Diagnosis Discharge Diagnosis (1) Severe sepsis: Code(s): A41.9 - Sepsis, unspecified organism; R65.20 - Severe sepsis without septic shock Status: Acute Assessment and Plan: Chronic urinary catheter Meets sirs criteria with leukocytosis, fever, tachycardia Source of infection urinary UA appeared infectious Urine culture grew Proteus mirabilis Continue ceftriaxone Fluid bolus given 30ml/kg x2 Continue maintenance fluids for now WBC decreased to 9.5 Trend labs Blood cultures NGTD (2) WILLIE (acute kidney injury): Code(s): N17.9 - Acute kidney failure, unspecified Status: Acute Assessment and Plan: Current BUN/Cr 28/06.30 Baseline creatinine appears to be 0.9 Most likely related to sepsis and dehydration IV fluids given Continue to trend labs Adjust therapy as indicated (3) Obstructed Winters catheter: Code(s): T83.091A - Other mechanical complication of indwelling urethral catheter, initial encounter Status: Acute Assessment and Plan: Catheter changed in the ED Found to have hematuria, and retention CBI stopped CT of the abd/pel shows multiple bladder stones, and mild hydroureter Continue to trend urine output Adjust therapy as indicate (4) Acute UTI: Code(s): N39.0 - Urinary tract infection, site not specified Status: Acute Assessment and Plan: UA appears to be infectious Continue Rocephin urine culture grew Proteus mirabilis Adjust therapy as indicated change antibiotics to cefdinir in the a.m. (5) Gross hematuria: Code(s): R31.0 - Gross hematuria Status: Acute Assessment and Plan: Seems to be better at this time Urology consulted CT multiple bladder stones and mild hydroureter Trend H/H remained stable Adjust therapy as indicated (6) Fecal impaction: Code(s): K56.41 - Fecal impaction Status: Acute Assessment and Plan: CT indicated fecal impaction Enema, lactulose, suppository, miralax and colace on board Large BM noted Continue for now (7) Hydronephrosis: Code(s): N13.30 - Unspecified hydronephrosis Status: Acute Assessment and Plan: CT indicated hydroureter Renal ultrasound was unremarkable, no hydronephrosis noted Urology consulted Continue urinary catheter Trend urine output adjust therapy as indicated DS: Summary Hospital Course Hospital Course: Patient is 67-year-old male with past medical history of dementia, chronic urinary retention with chronic indwelling catheter, glaucoma and GERD [facility]. Upon arrival patient was noted to have a temperature of a 103.8? and bladder was distended with no drainage. Urology was consulted and new catheter was installed with CBI. UA was collected did appear infectious and Grew Proteus mirabilis. CT of the abdomen and pelvis was also performed and showed fecal impaction along with bladder stones and mild hydro nephrosis and hydroureter. Renal ultrasound was performed today and did not show any findings and was unremarkable. Patient has been on IV ceftriaxone for UTI and has been changed to cefdinir. Upon arrival white count was noted to be greater than 30,000 and is currently 9.5 today. Renal function was also noted to be elevated with a creatinine of 1.6 patient was given IV fluids and creatinine is back down to 1.3 with a baseline of 0.9. Patient did meet sepsis criteria with leukocytosis, fever, tachycardia, source of infection. Fluid boluses were given along with continuous fluids. Blood cultures were performed and did not have any growth. Patient is currently stable for discharge and will be
--- NOTE | 2022-08-29 11:42 | P.DS_ITS ---
DS: Admitting Diagnosis Discharge Date 08/29/22 1130 Admitting Diagnosis UTi, Hydronephrosis, hematuria DS: Discharge Diagnosis Discharge Diagnosis (1) Severe sepsis: Code(s): A41.9 - Sepsis, unspecified organism; R65.20 - Severe sepsis without septic shock Status: Acute Assessment and Plan: * Chronic urinary catheter * Meets sirs criteria with leukocytosis, fever, tachycardia * Source of infection urinary * UA appeared infectious * Urine culture grew Proteus mirabilis * Continue ceftriaxone * Fluid bolus given 30ml/kg x2 * Continue maintenance fluids for now * WBC decreased to 9.5 * Trend labs * Blood cultures NGTD (2) WILLIE (acute kidney injury): Code(s): N17.9 - Acute kidney failure, unspecified Status: Acute Assessment and Plan: * Current BUN/Cr 28/06.30 * Baseline creatinine appears to be 0.9 * Most likely related to sepsis and dehydration * IV fluids given * Continue to trend labs * Adjust therapy as indicated (3) Obstructed Winters catheter: Code(s): T83.091A - Other mechanical complication of indwelling urethral catheter, initial encounter Status: Acute Assessment and Plan: * Catheter changed in the ED * Found to have hematuria, and retention * CBI stopped * CT of the abd/pel shows multiple bladder stones, and mild hydroureter * Continue to trend urine output * Adjust therapy as indicate (4) Acute UTI: Code(s): N39.0 - Urinary tract infection, site not specified Status: Acute Assessment and Plan: * UA appears to be infectious * Continue Rocephin * urine culture grew Proteus mirabilis * Adjust therapy as indicated * change antibiotics to cefdinir in the a.m. (5) Gross hematuria: Code(s): R31.0 - Gross hematuria Status: Acute Assessment and Plan: * Seems to be better at this time * Urology consulted * CT multiple bladder stones and mild hydroureter * Trend H/H remained stable * Adjust therapy as indicated (6) Fecal impaction: Code(s): K56.41 - Fecal impaction Status: Acute Assessment and Plan: * CT indicated fecal impaction * Enema, lactulose, suppository, miralax and colace on board * Large BM noted * Continue for now (7) Hydronephrosis: Code(s): N13.30 - Unspecified hydronephrosis Status: Acute Assessment and Plan: * CT indicated hydroureter * Renal ultrasound was unremarkable, no hydronephrosis noted * Urology consulted * Continue urinary catheter * Trend urine output * adjust therapy as indicated DS: Summary Hospital Course Hospital Course: Patient is 67-year-old male with past medical history of dementia, chronic urinary retention with chronic indwelling catheter, glaucoma and GERD who [facility] the shelter for complaints of hematuria. Upon arrival patient was noted to have a temperature of a 103.8? and bladder was distended with no drainage. Urology was consulted and new catheter was installed with CBI. UA was collected did appear infectious and Grew Proteus mirabilis. CT of the abdomen and pelvis was also performed and showed fecal impaction along with bladder stones and mild hydro nephrosis and hydroureter. Renal ultrasoun
[2022-08-29 12:41] LABS: EDCOVIDSCREEN Negative (Negative)
[2022-08-29] MEDS: FUROSEMIDE INJ 40 MG/4 ML VIAL IV PUSH (12:42)
== END 2022-08-29 18:58 | DRG 698 ==
LOC: ANHED 21:24 → ANHIMU 08-27 00:47
PROVIDERS: Admitting Provider Internal Medicine; Emergency Provider Emergency Medicine; PCP Family Medicine; Visit Provider Nurse Practitioner
DX: T83.511A Infection and inflammatory reaction due to indwelling urethral catheter, initial encounter (principal); A41.9 Sepsis, unspecified organism; R65.20 Severe sepsis without septic shock; N17.9 Acute kidney failure, unspecified; N13.30 Unspecified hydronephrosis; E87.21 Acute metabolic acidosis; N13.4 Hydroureter; N39.0 Urinary tract infection, site not specified; B96.4 Proteus (mirabilis) (morganii) as the cause of diseases classified elsewhere; T83.091A Other mechanical complication of indwelling urethral catheter, initial encounter; R31.0 Gross hematuria; N21.0 Calculus in bladder; E86.0 Dehydration; R33.9 Retention of urine, unspecified; N40.0 Benign prostatic hyperplasia without lower urinary tract symptoms; H40.9 Unspecified glaucoma; G30.9 Alzheimer's disease, unspecified; F02.80 Dementia in other diseases classified elsewhere, unspecified severity, without behavioral disturbance, psychotic disturbance, mood disturbance, and anxiety; Z66 Do not resuscitate; K56.41 Fecal impaction; K21.9 Gastro-esophageal reflux disease without esophagitis; Z96.641 Presence of right artificial hip joint; Z87.891 Personal history of nicotine dependence; Z98.42 Cataract extraction status, left eye; Z98.41 Cataract extraction status, right eye; Z96.1 Presence of intraocular lens
CPT/HCPCS: 36415; 51700; 74018; 74178; 76775; 80053; 81001; 83605; 83735; 85025; 85055; 87040; 87077; 87086; 87186; 87426; 87636; 92610; 93005; 96361; 96365; 96366; 96372; 96375; 99285; A9270; C9803; G0378; J0131; J0696; J1650; J1940; J3475; J7030; J7120; Q9967

== ENCOUNTER 2022-11-01 22:04 | Emergency (ER) | payer MEDICARE, SELFPAY ==
[2022-11-01 22:02] VITALS: BP 136/75; PULSE 73; RESP 18; TEMP 37.3; O2SAT 98
--- NOTE | 2022-11-01 22:40 | ED.MALEGU ---
HPI - Male Genitourinary General Chief complaint: Urogenital-Male Stated complaint: UTI S/S Time Seen by Provider: 11/01/22 22:16 History of Present Illness HPI Narrative: This is a 67-year-old male, with history of urinary retention requiring Winters catheterization, Parkinson's and late onset Alzheimer's, who was sent by his half-way ([place]) to be started on antibiotics for urinary tract infection. EMS reports nursing staff sent the patient to be started on antibiotics. A urinalysis collected at the patient's facility 3 days ago demonstrated UTI with culture positive for Proteus and sensitivity to third-generation cephalosporins. The patient has no complaints. His spouse, who is at bedside, states he is at his baseline mentation. Related Data Home Medications Medication Instructions Recorded Confirmed cetirizine 10 mg capsule 10 mg PO DAILY 08/10/19 08/27/22 famotidine 10 mg tablet (Pepcid AC) 10 mg PO DAILY 08/10/19 08/27/22 latanoprost (PF) 0.005 % eye drops 1 drop ophthalmic (eye) DAILY 08/10/19 08/27/22 timolol 0.25 % eye drops (Betimol) 1 drop ophthalmic (eye) Q12H 08/10/19 08/27/22 aspirin 81 mg chewable tablet 81 mg PO DAILY 08/27/22 08/27/22 buspirone 7.5 mg tablet 7.5 mg PO BID 08/27/22 08/27/22 calcium carbonate 500 mg calcium 500 mg PO BID 08/27/22 08/27/22 (1,250 mg) chewable tablet carbidopa 10 mg-levodopa 100 mg 1 tablet PO TID 08/27/22 08/27/22 tablet cyanocobalamin (vitamin B-12) 500 500 mcg PO DAILY 08/27/22 08/27/22 mcg tablet (Vitamin B-12) ergocalciferol (vitamin D2) 1,250 1,250 mcg PO WEEKLY 08/27/22 08/27/22 mcg (50,000 unit) capsule escitalopram oxalate 10 mg tablet 10 mg PO DAILY 08/27/22 08/27/22 mirtazapine 7.5 mg tablet 7.5 mg PO HS 08/27/22 08/27/22 quetiapine 50 mg tablet 50 mg PO BID 08/27/22 08/27/22 Allergies Allergy/AdvReac Type Severity Reaction Status Date / Time No Known Allergies Allergy Verified 01/14/22 01:53 Review of Systems Review of Systems: CONSTITUTIONAL: Denies fever, chills, or sweats. CARDIOVASCULAR: Denies chest pain, palpitations, or edema. RESPIRATORY: Denies cough or dyspnea. GASTROINTESTINAL: Denies abdominal pain, nausea, vomiting, or diarrhea. GENITOURINARY: Denies pain and catheter insertion MUSCULOSKELETAL: Denies back pain, joint pain, or myalgia. NEUROLOGIC: Denies headache, numbness, dizziness, or weakness. PSYCHIATRIC: Denies anxiety or depression. [facility] Past Medical History Medical History Alzheimer's dementia BPH (benign prostatic hyperplasia) Bulging lumbar disc Chronic indwelling Winters catheter Fecal impaction GERD (gastroesophageal reflux disease) Glaucoma Hydronephrosis Surgical History Surgical History History of right hip replacement Due to fracture Status post cataract extraction of both eyes with insertion of intraocular lens Family History Family History Mother Patient's mother is in good health Father Patient's father is in good health Sibling Patient's sister is in good health Patient's brother is in good health Other Family history of pancreatic cancer Social History Social History Social History: The patient is . Code status: DNR/DNI. No central line. Surrogate decision maker: Smoking packs per day: 1 Smoking cigarettes per day: 20.0 Years smoked: 5 Smoking pack-years: 5.00 Smoking status: Former smoker Second hand tobacco smoke exposure: No Smoking end date: 06/09/89 Alcohol intake: unknown Substance use: unknown Spiritual care concerns: No Exam Narrative: GENERAL: Well-developed, cachectic and in no acute distress. HEAD: Normocephalic, atraumatic. EYES: PERRLA and EOMI. ENT: Nares clear, no rhinorrhea or epist
--- NOTE | 2022-11-01 23:05 | PC.NURSE ---
This RN assumed care of patient.
[2022-11-01] MEDS: SODIUM CHLORIDE 0.9% IV 1,000 ML 999 ML IV CONT (23:07)
[2022-11-01 23:08] VITALS: BP 118/60; PULSE 65; RESP 12; O2SAT 100
[2022-11-01 23:59] VITALS: BP 118/56; PULSE 61; RESP 18; O2SAT 100
[2022-11-02 00:09] LABS: Appearance Urine Turbid (Clear); Bacteria Urine 4+ /hpf; Bilirubin Urine Negative (Negative); Blood Urine 2+ (Negative); Color Urine Yellow (Yellow); Glucose Urine UA Negative (Negative); Ketones Urine Negative (Negative); Leukocyte Esterase Ur 3+ LEU/UL (Negative); Need Manual Microscopic Reviewed; Nitrate Urine Positive (Negative); Non Pathogenic Casts >20; Protein Urine 2+ mg/dL (Negative); RBC Urine 51-100 /hpf (0-2); Specific Grav Ur 1.018 (1.001-1.035); Squamous Epithelial Cell Urine Occasional /hpf (Few); WBC Urine >100 /hpf
[2022-11-02 00:13] LABS: Add Urine Microscopic? YES
== END 2022-11-02 00:13 ==
PROVIDERS: Emergency Provider Preventive Medicine Aerospace Medicine; PCP Family Medicine
DX: T83.511A Infection and inflammatory reaction due to indwelling urethral catheter, initial encounter (principal); N39.0 Urinary tract infection, site not specified; N40.1 Benign prostatic hyperplasia with lower urinary tract symptoms; R33.8 Other retention of urine; G20 Parkinson's disease; G30.1 Alzheimer's disease with late onset; F02.80 Dementia in other diseases classified elsewhere, unspecified severity, without behavioral disturbance, psychotic disturbance, mood disturbance, and anxiety; K21.9 Gastro-esophageal reflux disease without esophagitis; H40.9 Unspecified glaucoma; Z96.641 Presence of right artificial hip joint; Z98.42 Cataract extraction status, left eye; Z98.41 Cataract extraction status, right eye; Z79.82 Long term (current) use of aspirin; Y84.6 Urinary catheterization as the cause of abnormal reaction of the patient, or of later complication, without mention of misadventure at the time of the procedure
CPT/HCPCS: 51702; 81001; 87086; 87088; 96365; 99284; J0696; J7030

== ENCOUNTER 2023-01-28 17:39 | Emergency (ER) | payer MEDICARE, SELFPAY ==
[2023-01-28 17:41] VITALS: BP 142/75; PULSE 61; RESP 12; TEMP 37.1; O2SAT 97
--- NOTE | 2023-01-28 19:30 | ED.GENADULT ---
HPI - General Adult General Chief complaint: Urogenital-Male Stated complaint: diff urinating, indwelling catheter Time Seen by Provider: 01/28/23 19:02 History of Present Illness HPI narrative: 67-year-old male presented to the emergency department from his detention for evaluation of decreased urinary output. Patient had a supra pubic Winters catheter placed by [facility] approximately 1 week ago. [facility] noticed that patient was having decreased urinary output so ultimately a Winters catheter was placed in his urethra and patient is now draining adequate urine. Patient was sent to the ED for evaluation. Patient does have baseline dementia and has no complaints at this time. Related Data Home Medications Medication Instructions Recorded Confirmed cetirizine 10 mg capsule 10 mg PO DAILY 08/10/19 08/27/22 famotidine 10 mg tablet (Pepcid AC) 10 mg PO DAILY 08/10/19 08/27/22 latanoprost (PF) 0.005 % eye drops 1 drop ophthalmic (eye) DAILY 08/10/19 08/27/22 timolol 0.25 % eye drops (Betimol) 1 drop ophthalmic (eye) Q12H 08/10/19 08/27/22 aspirin 81 mg chewable tablet 81 mg PO DAILY 08/27/22 08/27/22 buspirone 7.5 mg tablet 7.5 mg PO BID 08/27/22 08/27/22 calcium carbonate 500 mg calcium 500 mg PO BID 08/27/22 08/27/22 (1,250 mg) chewable tablet carbidopa 10 mg-levodopa 100 mg 1 tablet PO TID 08/27/22 08/27/22 tablet cyanocobalamin (vitamin B-12) 500 500 mcg PO DAILY 08/27/22 08/27/22 mcg tablet (Vitamin B-12) ergocalciferol (vitamin D2) 1,250 1,250 mcg PO WEEKLY 08/27/22 08/27/22 mcg (50,000 unit) capsule escitalopram oxalate 10 mg tablet 10 mg PO DAILY 08/27/22 08/27/22 mirtazapine 7.5 mg tablet 7.5 mg PO HS 08/27/22 08/27/22 quetiapine 50 mg tablet 50 mg PO BID 08/27/22 08/27/22 Allergies Allergy/AdvReac Type Severity Reaction Status Date / Time No Known Allergies Allergy Verified 01/14/22 01:53 Review of Systems Review of Systems: ROS unobtainable: Yes unobtainable due to medical condition PMFSH Past Medical History Medical History Alzheimer's dementia BPH (benign prostatic hyperplasia) Bulging lumbar disc Chronic indwelling Winters catheter Fecal impaction GERD (gastroesophageal reflux disease) Glaucoma Hydronephrosis Surgical History Surgical History History of right hip replacement Due to fracture Status post cataract extraction of both eyes with insertion of intraocular lens Family History Family History Mother Patient's mother is in good health Father Patient's father is in good health Sibling Patient's sister is in good health Patient's brother is in good health Other Family history of pancreatic cancer Social History Social History Social History: The patient is . Code status: DNR/DNI. No central line. Surrogate decision maker: Smoking packs per day: 1 Smoking cigarettes per day: 20.0 Years smoked: 5 Smoking pack-years: 5.00 Smoking status: Former smoker Second hand tobacco smoke exposure: No Smoking end date: 06/09/89 Alcohol intake: unknown Substance use: unknown Spiritual care concerns: No Exam Narrative: APPEARANCE: Well appearing, no pain, no distress, well-nourished. HEAD: normocephalic, atraumatic. EYES: PERRLA/EOMI, conjunctivae clear. NOSE: Normal no drainage NECK: Supple. No adenopathy, no masses. RESPIRATORY: Airway patent, respirations nonlabored. Clear to auscultation bilaterally, no rales, rhonchi, wheezing. CARDIOVASCULAR: Regular rate and rhythm without murmurs rubs or gallops. ABDOMINAL: Winters catheter was site well-appearing. Suprapubic Winters catheter is capped at this time. Winters catheter through the urethra is draining adequately MUSCULOSKELETAL: Moves all extremities. St
[2023-01-28 19:51] LABS: Appearance Urine Turbid (Clear); Bacteria Urine 4+ /hpf; Bilirubin Urine Negative (Negative); Blood Urine Negative (Negative); Color Urine Yellow (Yellow); Glucose Urine UA Negative (Negative); Ketones Urine Negative (Negative); Leukocyte Esterase Ur 2+ LEU/UL (Negative); Nitrate Urine Positive (Negative); Non Pathogenic Casts 0-2; Protein Urine 1+ mg/dL (Negative); RBC Urine 0-2 /hpf (0-2); Specific Grav Ur 1.013 (1.001-1.035); Squamous Epithelial Cell Urine None seen /hpf (Few); WBC Urine 51-100 /hpf
[2023-01-28 19:55] LABS: Add Urine Microscopic? YES
[2023-01-28] MEDS: SODIUM CHLORIDE 0.9% IV 1,000 ML 999 ML IV CONT (21:08)
[2023-01-28 21:13] LABS: Basophils Absolute Auto 0.1 K/mm3 (0.0-0.1); Basophils Percent Auto 0.8 % (0.2-1.2); Eosinophils Absolute Auto 1.4 K/mm3 (0-0.3); Eosinophils Percent Auto 12.5 % (0-4.4); Hematocrit 38.9 % (42.0-52.0); Hemoglobin 11.7 g/dL (14.0-18.0); Immature Granulocyte Absolute 0.03 K/mm3 (0.00-0.031); Immature Granulocyte Percent A 0.3 % (0-0.5); Lymphocytes Absolute Auto 2.11 K/mm3 (0.9-3.2); Lymphocytes Percent Auto 18.7 % (18.3-44.2); Mean Corpuscular HGB Conc 30.1 g/dl (32-36); Mean Corpuscular Hemoglobin 27.2 pg (26-34); Mean Corpuscular Volume 90.5 fl (80-100); Mean Platelet Volume 10.4 fl (7.4-10.4); Monocytes Absolute Auto 1.2 K/mm3 (0.1-0.6); Monocytes Percent Auto 10.9 % (2.6-8.5); Neutrophils Absolute Auto 6.4 K/mm3 (1.3-6.7); Neutrophils Percent Auto 56.8 % (45.5-73.1); Platelet Count Result 242 k/mm3 (150-375); Red Cell Distribution Width 15.2 % (11.5-14.5); White Blood Count 11.3 K/mm3 (4.5-10.0)
[2023-01-28 21:26] LABS: Alanine Aminotransferase 17 U/L (6-50); Albumin Level 3.8 g/dL (3.5-5.1); Alkaline Phosphatase 91 U/L (38-126); Anion Gap 7 mmol/L (8-16); Aspartate Amino Transferase 35 U/L (17-59); Bilirubin,Total 0.3 mg/dL (0.2-1.3); Blood Urea Nitrogen 24 mg/dL (9-20); Calcium 9.3 mg/dL (8.4-10.2); Carbon Dioxide 30 mmol/L (22-30); Chloride 106 mmol/L (98-107); Estimated Glomerular Filt Rate 51; Glucose 82 mg/dL (65-110); Sodium 143 mmol/L (137-145)
[2023-01-29] VITALS: BP 117/65; PULSE 75; RESP 12; O2SAT 100
== END 2023-01-29 00:04 ==
PROVIDERS: Emergency Provider Emergency Medicine; PCP Family Medicine
DX: N39.0 Urinary tract infection, site not specified (principal); T83.098A Other mechanical complication of other urinary catheter, initial encounter; G30.9 Alzheimer's disease, unspecified; F02.80 Dementia in other diseases classified elsewhere, unspecified severity, without behavioral disturbance, psychotic disturbance, mood disturbance, and anxiety; N40.0 Benign prostatic hyperplasia without lower urinary tract symptoms; K21.9 Gastro-esophageal reflux disease without esophagitis; H40.9 Unspecified glaucoma; Z96.641 Presence of right artificial hip joint; Z98.42 Cataract extraction status, left eye; Z98.41 Cataract extraction status, right eye; Z96.1 Presence of intraocular lens; Z87.891 Personal history of nicotine dependence; Y84.6 Urinary catheterization as the cause of abnormal reaction of the patient, or of later complication, without mention of misadventure at the time of the procedure
CPT/HCPCS: 36415; 80053; 81001; 85025; 87077; 87086; 87186; 96361; 96365; 99284; J0696; J7030

== ENCOUNTER 2023-02-08 07:52 | Emergency (ER) | payer MEDICARE, SELFPAY ==
[2023-02-08 07:45] VITALS: BP 119/82; PULSE 79; RESP 16; TEMP 37.3; O2SAT 97
--- NOTE | 2023-02-08 08:12 | ED.MALEGU ---
HPI - Male Genitourinary General Chief complaint: Urogenital-Male Stated complaint: catheter pain Time Seen by Provider: 02/08/23 07:56 History of Present Illness HPI Narrative: Patient is a 67-year-old male with history of Parkinson's and Alzheimer's who presents ER with pain around his suprapubic catheter. Apparently patient was reporting pain throughout the evening so the [facility] sent him here by ambulance. After he received 2 doses of Odd his pain went away. At this time patient is oriented x1. He is in no distress. He reports no pain and has no tenderness to the area. There is a bandage on from yesterday that appears clean. Related Data Home Medications Medication Instructions Recorded Confirmed cetirizine 10 mg capsule 10 mg PO DAILY 08/10/19 08/27/22 famotidine 10 mg tablet (Pepcid AC) 10 mg PO DAILY 08/10/19 08/27/22 latanoprost (PF) 0.005 % eye drops 1 drop ophthalmic (eye) DAILY 08/10/19 08/27/22 timolol 0.25 % eye drops (Betimol) 1 drop ophthalmic (eye) Q12H 08/10/19 08/27/22 aspirin 81 mg chewable tablet 81 mg PO DAILY 08/27/22 08/27/22 buspirone 7.5 mg tablet 7.5 mg PO BID 08/27/22 08/27/22 calcium carbonate 500 mg calcium 500 mg PO BID 08/27/22 08/27/22 (1,250 mg) chewable tablet carbidopa 10 mg-levodopa 100 mg 1 tablet PO TID 08/27/22 08/27/22 tablet cyanocobalamin (vitamin B-12) 500 500 mcg PO DAILY 08/27/22 08/27/22 mcg tablet (Vitamin B-12) ergocalciferol (vitamin D2) 1,250 1,250 mcg PO WEEKLY 08/27/22 08/27/22 mcg (50,000 unit) capsule escitalopram oxalate 10 mg tablet 10 mg PO DAILY 08/27/22 08/27/22 mirtazapine 7.5 mg tablet 7.5 mg PO HS 08/27/22 08/27/22 quetiapine 50 mg tablet 50 mg PO BID 08/27/22 08/27/22 Allergies Allergy/AdvReac Type Severity Reaction Status Date / Time No Known Allergies Allergy Verified 01/14/22 01:53 Review of Systems Review of Systems: ROS unobtainable: Yes unobtainable due to mental status PMFSH Past Medical History Medical History Alzheimer's dementia BPH (benign prostatic hyperplasia) Bulging lumbar disc Chronic indwelling Winters catheter Fecal impaction GERD (gastroesophageal reflux disease) Glaucoma Hydronephrosis Surgical History Surgical History History of right hip replacement Due to fracture Status post cataract extraction of both eyes with insertion of intraocular lens Family History Family History Mother Patient's mother is in good health Father Patient's father is in good health Sibling Patient's sister is in good health Patient's brother is in good health Other Family history of pancreatic cancer Social History Social History Social History: The patient is . Code status: DNR/DNI. No central line. Surrogate decision maker: Smoking packs per day: 1 Smoking cigarettes per day: 20.0 Years smoked: 5 Smoking pack-years: 5.00 Smoking status: Former smoker Second hand tobacco smoke exposure: No Smoking end date: 06/09/89 Alcohol intake: unknown Substance use: unknown Spiritual care concerns: No Exam Narrative: GENERAL: Chronically ill-appearing, well-nourished, and in no acute distress. HEAD: Normocephalic, atraumatic. EYES: PERRL and EOMI. ENT: Mucous membranes moist. CHEST: Clear to auscultation. No respiratory distress. HEART: Regular rate and rhythm. Normal peripheral pulses. ABDOMEN: Soft, nontender, nondistended, normal active bowel sounds. Suprapubic catheter noted without any skin breakdown around the area or cellulitis or purulent drainage. EXTREMITIES: Normal range of motion. No edema. SKIN: Warm, dry, no rash. NEURO: Alert and oriented x1. Course Vital Signs Vital signs: Vital Signs Temperature 99.1 F 02/08/23
[2023-02-08 09:19] LABS: Basophils Absolute Auto 0.1 K/mm3 (0.0-0.1); Basophils Percent Auto 0.9 % (0.2-1.2); Eosinophils Absolute Auto 0.7 K/mm3 (0-0.3); Eosinophils Percent Auto 6.1 % (0-4.4); Hematocrit 39.9 % (42.0-52.0); Hemoglobin 12.4 g/dL (14.0-18.0); Immature Granulocyte Absolute 0.04 K/mm3 (0.00-0.031); Immature Granulocyte Percent A 0.4 % (0-0.5); Lymphocytes Absolute Auto 1.21 K/mm3 (0.9-3.2); Lymphocytes Percent Auto 11.4 % (18.3-44.2); Mean Corpuscular HGB Conc 31.1 g/dl (32-36); Mean Corpuscular Hemoglobin 27.6 pg (26-34); Mean Corpuscular Volume 88.7 fl (80-100); Mean Platelet Volume 10.9 fl (7.4-10.4); Monocytes Absolute Auto 1.1 K/mm3 (0.1-0.6); Neutrophils Absolute Auto 7.6 K/mm3 (1.3-6.7); Neutrophils Percent Auto 71.2 % (45.5-73.1); Platelet Count Result 252 k/mm3 (150-375); White Blood Count 10.7 K/mm3 (4.5-10.0)
[2023-02-08 09:21] LABS: Appearance Urine Turbid (Clear); Bacteria Urine 4+ /hpf; Bilirubin Urine Negative (Negative); Blood Urine 2+ (Negative); Color Urine Yellow (Yellow); Glucose Urine UA Negative (Negative); Ketones Urine Negative (Negative); Leukocyte Esterase Ur 3+ LEU/UL (Negative); Nitrate Urine Positive (Negative); Protein Urine 1+ mg/dL (Negative); RBC Urine 21-50 /hpf (0-2); Specific Grav Ur 1.018 (1.001-1.035); Squamous Epithelial Cell Urine None seen /hpf (Few); WBC Urine >100 /hpf; pH Urine 8.5 (5.0-9.0)
[2023-02-08 09:25] LABS: Alanine Aminotransferase 19 U/L (6-50); Albumin Level 3.9 g/dL (3.5-5.1); Alkaline Phosphatase 93 U/L (38-126); Anion Gap 4 mmol/L (8-16); Aspartate Amino Transferase 30 U/L (17-59); Bilirubin,Total 0.5 mg/dL (0.2-1.3); Blood Urea Nitrogen 25 mg/dL (9-20); Calcium 9.7 mg/dL (8.4-10.2); Carbon Dioxide 33 mmol/L (22-30); Chloride 105 mmol/L (98-107); Estimated CRCL calculation 49 ml/min; Estimated Glomerular Filt Rate 51; Glucose 99 mg/dL (65-110); Potassium 4.5 mmol/L (3.4-5.0); Sodium 142 mmol/L (137-145)
[2023-02-08 09:28] LABS: Add Urine Microscopic? YES
[2023-02-08 09:34] VITALS: BP 116/72; PULSE 71; RESP 20; O2SAT 100
[2023-02-08] MEDS: CEFUROXIME AXETIL 250 MG TABLET 500 MG PO (11:32)
[2023-02-08 11:45] VITALS: BP 136/75; PULSE 61; RESP 19; O2SAT 100
[2023-02-08 12:10] VITALS: BP 126/79; PULSE 60; RESP 19; O2SAT 100
== END 2023-02-08 12:12 ==
PROVIDERS: Emergency Provider Emergency Medicine; PCP Family Medicine
DX: N30.90 Cystitis, unspecified without hematuria (principal); G20 Parkinson's disease; G30.9 Alzheimer's disease, unspecified; F02.80 Dementia in other diseases classified elsewhere, unspecified severity, without behavioral disturbance, psychotic disturbance, mood disturbance, and anxiety; K21.9 Gastro-esophageal reflux disease without esophagitis; H40.9 Unspecified glaucoma; Z66 Do not resuscitate; Z98.42 Cataract extraction status, left eye; Z98.41 Cataract extraction status, right eye; Z96.1 Presence of intraocular lens; Z96.641 Presence of right artificial hip joint; Z87.891 Personal history of nicotine dependence
CPT/HCPCS: 36415; 80053; 81001; 85025; 87086; 87088; 99283; A9270